=== PATIENT | female | born 1955 | race Caucasian/White ===

== ENCOUNTER → 2017-05-21 | Outpatient (CLI) | payer OTHER ==
--- NOTE | 2017-05-21 12:35 | BD ---
EXAMINATION TYPE: MG DEXA axial skeleton. DATE OF EXAM: 05/21/2017 COMPARISON: 06/28/2008. CLINICAL HISTORY: Osteoporosis Height: 68 Weight: 195.8 FRAX RISK QUESTIONS: Alcohol (3 or more units per day): no Family History (Parent hip fracture): no Glucocorticoids (More than 3mos): no (Ex: prednisone, prednisolone, methylprednisolone, dexamethasone, and hydrocortisone). History of Fracture in Adulthood: no Secondary Osteoporosis: 1. Type 1 Diabetes: no 2. Hyperthyroidism: no 3. Menopause before 45: no 4. Malnutrition: no 5. Chronic liver disease: no Rheumatoid Arthritis: no Current Tobacco Use: no RISK FACTORS HISTORY OF: Hip Fracture (Right/Left): no Spine Fracture: no History of Wrist Fracture: no Surgery to Spine/Hip(right/left)/Wrist (right/left): no Family History of Osteoporosis: yes Active: yes Diet low in dairy products/other sources of calcium: no Postmenopausal woman: age 46 Lost more than 2 inches in height since high school: no Frequent falls: no Poor Health: no Hyperparathyroidism: no Adrenal Insufficiency: no MEDICATIONS: blood pressure, lexapro Additional History: EXAM MEASUREMENTS: Bone mineral densitometry was performed using the [employer] System. Bone mineral density as measured about the Lumbar spine is: ----- L1-L4(G/cm2): 1.224 T Score Values are as follows: ----- L2: 0.5 ----- L3: 0.8 ----- L4: 0.7 ----- L1-L4: 0.4 Bone mineral density has: desreased -5.2 % since study of: 06.28.2008 Bone mineral density about the R hip (g/cm2): 0.880 Bone mineral density about the L hip (g/cm2): 0.870 T Score values are as follows: -----R Neck: -1.1 -----L Neck: -1.2 -----R Total: -0.5 -----L Total: -0.3 Bone mineral density has: decreased -3.5 % since study of: 06.28.2008 IMPRESSION: Osteopenia (T Score between -2.5 and -1 as noted by T score values). There is slightly increased risk of fracture and the patient may be considered for treatment. Re-Screen 2-5 years. NOTE: T-SCORE=SD OF THE YOUNG ADULT MEAN.
--- NOTE | 2017-05-22 14:48 | MM ---
Reason for exam: screening (asymptomatic). Last mammogram was performed 1 year and 1 month ago. History: Patient is postmenopausal. Family history of premenopausal breast cancer in aunt at age 35. Benign excisional biopsy of the left breast, 1969. Physical Findings: A clinical breast exam by your physician is recommended on an annual basis and results should be correlated with mammographic findings. MG 3D Screening Mammo W/Cad Bilateral CC and MLO view(s) were taken. Prior study comparison: May 01, 2016, bilateral MG 3d screening mammo w/cad. There are scattered fibroglandular densities. No significant changes when compared with prior studies. ASSESSMENT: Benign, BI-RAD 2 RECOMMENDATION: Routine screening mammogram of both breasts in 1 year.
== END | disposition home or self-care (01) ==
LOC: RADMAMWWP 07:41
PROVIDERS: ATTEND Family Medicine
DX: Z12.31 Encounter for screening mammogram for malignant neoplasm of breast (principal); Z13.820 Encounter for screening for osteoporosis; M85.80 Other specified disorders of bone density and structure, unspecified site
CPT/HCPCS: 77080; 77063; G0202

== ENCOUNTER → 2018-06-18 | Outpatient (CLI) | payer OTHER ==
--- NOTE | 2018-06-23 10:46 | MM ---
Reason for exam: screening (asymptomatic). Last mammogram was performed 1 year and 1 month ago. History: Patient is postmenopausal. Family history of premenopausal breast cancer in aunt at age 35. Benign excisional biopsy of the left breast, 1970. Physical Findings: A clinical breast exam by your physician is recommended on an annual basis and results should be correlated with mammographic findings. MG Screening Mammo w CAD Bilateral CC and MLO view(s) were taken. Prior study comparison: May 21, 2017, bilateral MG 3d screening mammo w/cad. May 01, 2016, bilateral MG 3d screening mammo w/cad. There are scattered fibroglandular densities. New focal asymmetry 10 o'clock left breast middle depth. This is suspicious. ASSESSMENT: Incomplete: need additional imaging evaluation, BI-RAD 0 RECOMMENDATION: Special view mammogram of the left breast. If lesion persists on supplemental views, image directed ultrasound is recommended. [facility] will attempt to contact patient to return for supplemental views and ultrasound if indicated.
== END | disposition home or self-care (01) ==
LOC: RADMAMWWP 08:36
PROVIDERS: ATTEND Family Medicine
DX: Z12.31 Encounter for screening mammogram for malignant neoplasm of breast (principal)
CPT/HCPCS: 77067

== ENCOUNTER → 2018-06-24 | Outpatient (CLI) | payer OTHER ==
--- NOTE | 2018-06-24 13:09 | MM ---
Reason for exam: additional evaluation requested from abnormal screening. Last mammogram was performed less than 1 month ago. History: Patient is postmenopausal. Family history of premenopausal breast cancer in aunt at age 35. Benign excisional biopsy of the left breast, 1970. Took estrogen for 3 months beginning at age 46. Took progesterone for 3 months beginning at age 46. Physical Findings: Nurse did not find any significant physical abnormalities on exam. MG 3D Work Up W/Cad LT Spot compression CC, spot compression MLO, and LM view(s) were taken of the left breast. Prior study comparison: June 18, 2018, bilateral MG screening mammo w CAD. May 21, 2017, bilateral MG 3d screening mammo w/cad. There are scattered fibroglandular densities. 8mm mass persists 10 o'clock central left breast. These results were verbally communicated with the patient and result sheet given to the patient on 06/24/18. ASSESSMENT: Incomplete: need additional imaging evaluation, BI-RAD 0 RECOMMENDATION: Ultrasound of the left breast.
--- NOTE | 2018-06-24 13:11 | USB ---
Reason for exam: additional evaluation requested from abnormal screening. History: Patient is postmenopausal. Family history of premenopausal breast cancer in aunt at age 35. Benign excisional biopsy of the left breast, 1970. Took estrogen for 3 months beginning at age 46. Took progesterone for 3 months beginning at age 46. US Breast Workup LT Left complete breast ultrasound includes all four quadrants, the retroareolar region and axilla. Finding demonstrates a 0.8 x 0.5 x 0.6cm oval, taller than wide, irregular, solid, hypoechoic lesion at 10 o'clock. No axillary lymphadenopathy. These results were verbally communicated with the patient and result sheet given to the patient on 06/24/18. ASSESSMENT: Suspicious, BI-RAD 4 RECOMMENDATION: Surgical consultation and ultrasound core biopsy of the left breast. Called Dr. Varela with mammographic findings and has scheduled an appointment for the patient for 07/09/18 at 3:[address] Haines. Biopsy scheduled for 07/13/18 at 12:20. PRELIMINARY REPORT CALLED AND FAXED TO DR. HAINES ON 06/24/18.
== END | disposition home or self-care (01) ==
LOC: RADMAMWWP 10:00
PROVIDERS: ATTEND Family Medicine
DX: R92.8 Other abnormal and inconclusive findings on diagnostic imaging of breast (principal)
CPT/HCPCS: 77061; 77065

== ENCOUNTER → 2018-07-09 | Outpatient (CLI) | payer OTHER ==
[2018-07-09 08:16] VITALS: BP 147/68; PULSE 69; BMI 29.6
--- NOTE | 2018-07-09 08:49 | P.GSHP ---
History of Present Illness H&P Date: 07/09/18 The patient is a 62-year-old white female who is status post routine bilateral screening mammogram. The mammogram was performed on 06-18-18, this showed a questionable lesion in the left breast. Subsequently a left breast by compression view was obtained after which an ultrasound of the left breast was obtained. On the compression view an 8 mm mass persisted at 10:00 in the central left breast. On the ultrasound a 8 mm tolerated and wide irregular solid hypoechoic lesion was seen at 10:00. An ultrasound core biopsy was recommended. The patient does not feel anything of concern in her breast. She has no nipple discharge or skin changes of concern. She has no history of trauma or infection in the breast. Family history: 1. maternal aunt: breast cancer dx. in 30's 2. maternal cousin: breast cousin in 60's 3. maternal second cousin: breast cancer bilateral in 40's 4. brother: prostate Hormonal History: menarche: 14 : 2, first at 17, breast fed:yes menopause: hysterectomy took ovaries, at the age of 46 BCP: less than 1 year hormones: less than 1 year Past Surgical History: 1. hysterectomy and bilateral oophrectomy 2. gallbladder 3. bilateral carpel tunnel 4. left great toe 5. appendix Past Medical History: 1. HTN Social history: Smoke: Negative stopped 20 years ago, less than a pack a day for 20 years Alcohol: Wine 1-2 glasses per day Drugs: Negative Allergies: none - Constitutional Constitutional: Denies chills, Denies fever - EENT Eyes: denies blurred vision, denies pain Ears: bilateral: tinnitus, deny: decreased hearing Ears, nose, mouth and throat: Denies headache, Denies sore throat - Breasts Breasts: bilateral: as per HPI - Cardiovascular Comment: Patient with intermittent heart flutter follows with cardiology Cardiovascular: Reports high blood pressure - Respiratory Respiratory: Denies cough, Denies 7 - Gastrointestinal Gastrointestinal: Denies abdominal pain, Denies diarrhea, Denies nausea, Denies vomiting - Genitourinary (Female) Genitourinary: Denies dysuria, Denies hematuria - Menstruation Menstruation: Reports post hysterectomy - Musculoskeletal Comment: osteoarthritis, toe and hips Musculoskeletal: Reports myalgias - Integumentary Integumentary: Denies pruritus, Denies rash - Neurological Neurological: Denies numbness, Denies weakness - Psychiatric Psychiatric: Reports anxiety, Denies depression - Endocrine Endocrine: Denies fatigue, Denies weight change - Hematologic/Lymphatic Comment: aspirin baby - Allergic/Immunologic Comment: none Past Medical History Past Medical History: GERD/Reflux, Hypertension History of Any Multi-Drug Resistant Organisms: None Reported Past Surgical History: Breast Surgery, Cholecystectomy, Hysterectomy, Orthopedic Surgery Additional Past Surgical History / Comment(s): first digit left foot fusion, bilateral carpal tunnel sx, left breast benign excisional-1970 Past Anesthesia/Blood Transfusion Reactions: No Reported Reaction Past Psychological History: Depression Smoking Status: Former smoker Past Alcohol Use History: None Reported Past Drug Use History: None Reported Medications and Allergies Home Medications Medication Instructions Recorded Confirmed Type Aspirin [Adult Low Dose Aspirin EC] 81 mg PO DAILY 07/03/18 07/09/18 History Cholecalciferol (Vitamin D3) 4,000 unit PO DAILY 07/03/18 07/09/18 History [Vitamin D3] Cyanocobalamin (Vitamin B-12) 5,000 mcg PO DAILY 07/03/18 07/09/18 History [Vitamin B12] Escitalopram Oxalate [Lexapro] 10 mg PO DAILY 07/03/18 07/09/18 History Irbesartan 300 mg PO DAILY 07/03/18 07/09/18 History Omeprazole [PriLOSEC] 20 mg PO DAILY 07/03/18 07/09/18 History Allergies Allergy/AdvReac Type Severity Reaction Status Date / Time No Known Allergies Allergy Verified 07/03/18 13:06 Surgical - Exam Vital Signs Pulse BP Pulse Ox 69 147/68 100 07/09/18 08:10 07/09/18 08:10 07/09/18 08:10 - General well developed, well nourished, no distress - Eyes normal ocular movement - ENT no hearing loss, no congestion - Neck no masses, trachea midline - Respiratory normal respiratory effort, clear to auscultation - Cardiovascular Rhythm: regular Heart Sounds: normal: S1, S2 - Abdomen Abdomen: soft, non tender, no guarding, no rigid, no rebound - Neurologic no disoriented, no combative - Musculoskeletal normal gait, normal posture - Psychiatric oriented to time, oriented to person, oriented to place, speech is normal, memory intact Breast examination: Right breast: Multi-positional exam no dominant masses or nodules of concern Right axilla: No adenopathy of concern Left breast: Multi-positional exam no dominant masses or nodules of concern special attention to the 10:00 area did not reveal any lesions of concern Left axilla: No adenopathy of concern Results Mammogram and ultrasound reports reviewed Assessment and Plan Assessment: Impression: 1. Ultrasound abnormality/mammographic abnormality left breast 2. Fibrocystic breast changes 3. Hypertension/irregular heartbeats at times, follows with light adjuster 4. Osteoarthritis Plan: 1. Ultrasound-guided core biopsy left breast 2. Medical management of medical problems 3. Follow-up after ultrasound core biopsy of left breast CC: Dr. Varela
== END | disposition home or self-care (01) ==
LOC: WWCWWP 07:46
PROVIDERS: ATTEND Surgery
DX: Z53.9 Procedure and treatment not carried out, unspecified reason (principal)

== ENCOUNTER → 2018-07-13 | Day surgery (SDC) | payer OTHER ==
[2018-07-13 11:23] VITALS: RESP 12
[2018-07-13 12:43] VITALS: BP 135/80; PULSE 75; TEMP 98.3
--- NOTE | 2018-07-13 12:56 | USB ---
EXAMINATION TYPE: US biopsy breast VAD LT, MG diagnostic mammo LT wo CAD DATE OF EXAM: 07/13/2018 CLINICAL HISTORY: R92.8 Previous Abnormal Mammogram. Abnormal ultrasound TECHNIQUE: Ultrasound guided core biopsy of left breast with clip placement and follow-up diagnostic two-view mammogram. COMPARISON: Mammogram and ultrasound June 24, 2018 FINDINGS: The procedure of ultrasound guided core biopsy was explained to the patient. Benefits, alternatives, and risks were discussed. An informed consent was then obtained. The patient was placed in supine positioning for imaging and for the procedure. Preprocedure imaging redemonstrates suspicious irregular hypoechoic shadowing 7 mm lesion 10:00 position zone a and the left breast. The overlying skin was prepped and draped in usual sterile fashion. Lidocaine buffered with bicarbonate was used as anesthetic into the skin and subcutaneous tissue. Lidocaine with epinephrine is used as anesthetic into the deeper tissue up to area of concern in the left breast. Under ultrasound guidance, a 12-gauge vacuum assisted biopsy gun device was used to obtain 3 core samples. Following this, a biopsy clip was left in lesion. The patient tolerated the procedure well without any immediate complication. The patient was kept in the radiology department for short stay after the procedure and then discharged home in stable condition. Postprocedure mammogram shows successful placement of clip relative to the area of concern on mammogram, previously visualized density is less well-seen after sampling. IMPRESSION: Successful, uncomplicated ultrasound guided core biopsy of area of concern in the left breast, full pathology results to follow. Intermediate to high index of suspicion noted at time of procedure. Pathology Results: Malignant BREAST, LEFT, ULTRASOUND GUIDED CORE BIOPSY: Invasive well differentiated ductal carcinoma (Grade 1). See Surgical Pathology Cancer Case Summary. Recommendation Surgical consult of the left breast. GUILLE
== END | disposition home or self-care (01) ==
LOC: RADUSWWP 11:02
PROVIDERS: ATTEND Surgery
DX: C50.912 Malignant neoplasm of unspecified site of left female breast (principal); Z17.0 Estrogen receptor positive status [ER+]
CPT/HCPCS: 88305; 77065; 19083; A4648; J2001; 88341; 88342

== ENCOUNTER → 2018-07-23 | Outpatient (CLI) | payer OTHER ==
[2018-07-23 13:16] VITALS: BP 136/63; PULSE 75; BMI 28.8
--- NOTE | 2018-07-23 14:10 | P.PN ---
Subjective Progress Note Date: 07/23/18 The patient is a 62-year-old white female who is status post ultrasound-guided core biopsy of an 8 mm lesion in the 10 o'clock position of the left breast. Pathology revealed a grade 1 invasive ductal carcinoma which was ER/UT positive and HER-2 negative. The patient has no complaints related to the procedure. The procedure was done by radiology as an ultrasound core biopsy. Objective - Vital Signs Vital signs: Vital Signs Temp Pulse 75 07/23/18 13:12 Resp BP 136/63 07/23/18 13:12 Pulse Ox 100 07/23/18 13:12 Intake & Output 07/22/18 07/23/18 07/23/18 18:59 06:59 18:59 Weight 86.183 kg BMI 28.9 - Constitutional General appearance: Present: obese - EENT Eyes: Present: EOMI - Neck Neck: Present: normal ROM - Respiratory Respiratory: bilateral: CTA - Cardiovascular Rhythm: regular Heart sounds: normal: S1, S2 - Musculoskeletal Musculoskeletal: Present: gait normal - Psychiatric Psychiatric: Present: A&O x's 3, appropriate affect, intact judgment & insight - Additional findings Additional findings: Examination of the left breast does not reveal any evidence of infection, mild ecchymosis at the site of biopsy Assessment and Plan Assessment: Impression: 1. Left breast invasive ductal carcinoma At had a long conversation with the patient and her . We have discussed options including lumpectomy and radiation therapy with sentinel node biopsy possible axillary node dissection, mastectomy plus or minus reconstruction. The risks and benefits of the procedures have been discussed with the patient. I believe she is a good candidate for a lumpectomy. This is how the patient wishes to proceed. We've also discussed the fact that she has a maternal aunt who had breast cancer in her 30's however this does not make the patient to candidate for BRCA1 testing as per conversation with Dr. Hollins. Plan: 1. Left breast needle localization with sentinel node injection, lumpectomy and sentinel node biopsy, possible axillary node dissection cc: DR. Tran
== END ==
LOC: WWCWWP 12:22
PROVIDERS: ATTEND Surgery
DX: Z53.9 Procedure and treatment not carried out, unspecified reason (principal)

== ENCOUNTER 2018-08-11 07:15 | Day surgery (SDC) | payer OTHER ==
[2018-08-04 14:13] VITALS: BMI 29.6
[~2018-08-11 07:15] MED LIST: HEPARIN SODIUM,PORCINE 5,000 UNIT/ML 1 ML VIAL SQ ONE; Pre Op ABX Message 1 EACH MISC MISCELLANE ONE
[2018-08-11] MEDS ORDERED: LACTATED RINGERS 1,000 ML IV ONE ×2 (07:47→11:55)
[2018-08-11] MEDS ORDERED: LIDOCAINE 1% 20 ML VIAL (10MG/ML) FOR IV START INTRADERMA ONE (07:48)
[2018-08-11] MEDS ORDERED: LIDOCAINE (PF) 10 MG/ML 5ML AMP SQ ONE (08:57)
[2018-08-11] MEDS ORDERED: SODIUM BICARB 4% 5 ML VIAL (0.48 MEQ/ML) MISCELLANE ONE (08:57)
[2018-08-11 09:23] VITALS: TEMP 97.9
--- NOTE | 2018-08-11 09:56 | NM ---
EXAMINATION TYPE: NM sentinel node injection DATE OF EXAM: 08/11/2018 COMPARISON: 07/13/2018 and 06/24/2018 HISTORY: Left breast invasive well-differentiated ductal carcinoma (7 mm lesion at the top clock posi tion). EXAMINATION TYPE: NM sentinel node injection TECHNIQUE AND FINDINGS: The procedure of sentinel lymph node injection was explained to the patient. The benefits, alternatives, and risks were discussed. An informed consent was then obtained. Overlying skin is cleaned with sterile alcohol. Following this, 537 uCi [id number] Tilmanocept was inject ed in the upper outer aspect of the left nipple intradermally. The patient tolerated the procedure well without any immediate complication. The patient was kept in the radiology department for short stay after the procedure and then taken to surgery for surgical p rocedure what is presumed intraoperative gamma probe will be used for sentinel lymph node detection. IMPRESSION: breast radiotracer injection for sentinel node localization as above.
[2018-08-11] MEDS ORDERED: HEPARIN SODIUM,PORCINE 5,000 UNIT/ML 1 ML VIAL SQ ONE (10:05)
--- NOTE | 2018-08-11 10:07 | P.NAPBC ---
NAPBC Queries - NAPBC Queries Was patient's case review presented at [facility] tumor board? If no, comment.: Yes Was patient's pathology reviewed at [facility]? If no, comment.: Yes Was breast conservation surgery offered? If no, comment.: Yes Was sentinel node biopsy offered? If no, comment.: Yes Was diagnosis confirmed by percutaneous core biopsy? If no, comment.: Yes If mastectomy patient, was a preop referral to a reconstructive surgeon offered? : Yes
[2018-08-11] MEDS ORDERED: fentaNYL (PF) 50 MCG/ML 2 ML AMP ONE (10:42)
[2018-08-11] MEDS ORDERED: NEOSTIGMINE 1 MG/ML 10 ML VIAL ONE (10:42)
[2018-08-11] MEDS ORDERED: LIDOCAINE 1% INJ 10MG/ML (20 ML MDV) ONE (10:42)
[2018-08-11] MEDS ORDERED: ePHEDrine SULFATE/0.9% NACL/PF 50 MG/5 ML SYRINGE IV ONE (10:42)
[2018-08-11] MEDS ORDERED: MIDAZOLAM 2 MG/2 ML VIAL ONE (10:42)
[2018-08-11] MEDS ORDERED: GLYCOPYRROLATE 0.2 MG/ML 2 ML VIAL ONE (10:42)
[2018-08-11] MEDS ORDERED: ROCURONIUM BROMIDE 10 MG/ML 10 ML VIAL IV ONE (10:42)
[2018-08-11] MEDS ORDERED: PROPOFOL 10 MG/ML 20 ML VIAL IV ONE (10:42)
[2018-08-11] MEDS ORDERED: PHENYLEPHRINE-0.9% NACL SYG 1 MG/10 ML SYRINGE ONE (10:42)
[2018-08-11] MEDS ORDERED: SODIUM CHLORIDE 0.9% 50 ML with ceFAZolin 2,000 MG IV ONE ×2 (11:12)
[2018-08-11] MEDS ORDERED: LIDOCAINE 1% INJ 10MG/ML (20 ML MDV) SQ ONE ×2 (11:12→13:01)
--- NOTE | 2018-08-11 13:01 | MM ---
EXAMINATION TYPE: MG pre op needle loc LT, MG surgical specimen LT DATE OF EXAM: 08/11/2018 COMPARISON: 07/13/2018 CLINICAL HISTORY: Left breast invasive well-differentiated ductal carcinoma (7 mm mass). TECHNIQUE: Needle localization with wire placement and surgical excision of area of concern in the left breast. FINDINGS: The procedure of needle localization with wire placement and than surgical excision was explained to the patient. Benefits, alternatives, and risks were discussed. An informed consent was then obtained. Preprocedural timeout was performed. The shortest pathway for procedure was chosen. Shortest pathway was medial to lateral approach. The overlying skin was prepped and draped in usual sterile fashion. Lidocaine buffered with bicarbonate was used as anesthetic into the skin and subcutaneous tissue up to the level of area of concern. A 7 cm needle was used. It was placed via a medial to lateral approach under mammographic guidance. Subsequent 90 degrees mammogram show the needle to be in satisfactory position relative to the targeted area. At this point, wire was placed and the needle was withdrawn. The wire was fixed to patient's skin. Images were marked for surgeon. The patient tolerated the procedure well without any immediate complication. The patient was kept in the radiology department for short stay after the procedure and then taken to surgery for surgical excision. Targeted ribbon- shaped biopsy marker and wire are identified in specimen mammogram. The patient was kept in hospital for short stay after the procedure and then discharged home in stable condition. IMPRESSION: Successful, uncomplicated needle localization with wire placement and surgical excision of targeted ribbon-shaped biopsy marker indicating the 7 mm biopsy-proven left breast invasive well-differentiated ductal carcinoma in the left breast, full pathology results to follow. Pathology Results: Malignant A. LEFT BREAST, LUMPECTOMY: Invasive well differentiated ductal carcinoma ( Grade 1), margins negative for malignancy. See Surgical Pathology Cancer Case Summary. B. LEFT AXILLARY SENTINEL LYMPH NODE, BIOPSY: Lymph node negative for metastasis. CK7 and WES immunoperoxidase stains are confirmatory (controls appropriate). C. LEFT AXILLARY TISSUE: Three lymph nodes with fat replacement, negative for metastasis. D. LEFT BREAST ANTERIOR MARGIN, EXCISION: Benign skin. E. LEFT BREAST, EXTERNAL SURFACE OF NEW INFERIOR MARGIN, EXCISION: Benign breast tissue. Recommendation Surgical consult of the left breast. GUILLE
--- NOTE | 2018-08-11 13:09 | P.OP ---
Date of Procedure: 08/11/18 Preoperative Diagnosis: Left breast cancer Postoperative Diagnosis: Same Procedure(s) Performed: [place] node biopsy left axilla, left breast lumpectomy, oncoplastic tissue transfer, Biozorb placement Implants: biozorb 3x4 Anesthesia: GETA Surgeon: Judy Haines Estimated Blood Loss (ml): 15 IV fluids (ml): 1,000 Pathology: other (sentinal node, breast tissue) Condition: stable Disposition: PACU Indications for Procedure: Left breast invasive ductal carcinoma Operative Findings: Dense breast tissue Description of Procedure: The patient is a 62-year-old white female who was diagnosed with a left breast invasive ductal carcinoma via core biopsy. She was given options of lumpectomy versus mastectomy with or without reconstruction and decided for a lumpectomy. Risks and benefits of the procedure were discussed with the patient. The patient was taken to the operating room and following induction of general anesthesia the left breast and axilla were prepped and draped in a sterile fashion. Using the neoprobe the area for incision in the axilla was decided. Small incision was made and carried down to the area of the pectoralis major muscle. This was carried down into the area of the axillary tissue. The radioactive lymph node was identified. The 10 second count of the radioactive lymph node was approximately 18,000. Following this background count of the axilla was evaluated and this was noted to be 31 at 10 seconds. After this the axilla was well irrigated. We were sure that hemostasis was attained the deep tissues were closed using 3-0 Vicryl suture. The skin was closed using 4-0 Monocryl. The area of the breast was then approached. A circumareolar incision was made with a second curvilinear incision just superior to this incision. Careful dissection was able to be performed such that the area of the needle local localization needle was identified. We dissected around the needle suture circumferentially. Anteriorly the dissection included the skin. Posterior dissection was down onto the pectoralis major muscle. Wide excision was performed. The specimen was radiographed and the area of concern was noted to have been removed. There was concern that the inferior margin may be close and additional tissue was taken at the inferior margin. The specimen was painted for orientation. The lumpectomy cavity was then evaluated. Approximately 8 x 3 mL of tissue transfer using oncoplastic technique was performed to fill the defect. A Biozorb sizer was utilized to determine the size of the biozorb are to be used. A 3 x 4 Biozorb was chosen. This was placed in the cavity and secured using 3-0 Vicryl suture. The superficial tissues were closed with 3-0 Vicryl suture. The skin was closed with 4-0 Monocryl. The patient tolerated the procedure in stable condition. All instrument and sponge counts were correct at the end of the case.
--- NOTE | 2018-08-11 13:10 | P.DS ---
Providers Attending physician: Judy Haines Primary care physician: Lenny Varela Plan - Discharge Summary New Discharge Prescriptions: No Action Omeprazole [PriLOSEC] 20 mg PO DAILY Irbesartan 300 mg PO DAILY Escitalopram Oxalate [Lexapro] 10 mg PO DAILY Cholecalciferol (Vitamin D3) [Vitamin D3] 4,000 unit PO DAILY Aspirin [Adult Low Dose Aspirin EC] 81 mg PO DAILY Cyanocobalamin [Vitamin B-12] 500 mcg PO DAILY ALPRAZolam [Xanax] 0.25 mg PO DAILY PRN PRN Reason: Anxiety Discharge Medication List Aspirin [Adult Low Dose Aspirin EC] 81 mg PO DAILY 07/03/18 [History] Cholecalciferol (Vitamin D3) [Vitamin D3] 4,000 unit PO DAILY 07/03/18 [History] Escitalopram Oxalate [Lexapro] 10 mg PO DAILY 07/03/18 [History] Irbesartan 300 mg PO DAILY 07/03/18 [History] Omeprazole [PriLOSEC] 20 mg PO DAILY 07/03/18 [History] ALPRAZolam [Xanax] 0.25 mg PO DAILY PRN 08/04/18 [History] Cyanocobalamin [Vitamin B-12] 500 mcg PO DAILY 08/04/18 [History] Follow up Appointment(s)/Referral(s): Judy Haines MD [STAFF PHYSICIAN] - 1 Week Activity/Diet/Wound Care/Special Instructions: Do not drive today Do not drive if taking narcotic pain medication Patient may shower after 48 hours Patient to wear surgical bra at all times unless in shower Discharge Disposition: HOME SELF-CARE
[2018-08-11 13:59] VITALS: RESP 16
[2018-08-11] MEDS ORDERED: HYDROcodone/APAP 5-325MG 1 EACH TAB PO ONE (14:55)
[2018-08-11 14:57] VITALS: BP 123/60; PULSE 79
== END 2018-08-11 15:47 | disposition home or self-care (01) ==
LOC: OR 07:15
PROVIDERS: ATTEND Surgery
DX: C50.212 Malignant neoplasm of upper-inner quadrant of left female breast (principal); Z17.0 Estrogen receptor positive status [ER+]; I10 Essential (primary) hypertension; K21.9 Gastro-esophageal reflux disease without esophagitis; Z79.82 Long term (current) use of aspirin; Z79.899 Other long term (current) drug therapy
CPT/HCPCS: 19301; 38525; 88342; 88307; 88341; 76098; 19281; 38792; A4648; A9520; J2250; J1644; J2710; J2001 ×2; J3010; J0690; J2370; J2704

== ENCOUNTER → 2018-08-20 | Outpatient (CLI) | payer OTHER ==
[2018-08-20 13:11] VITALS: BP 120/74; PULSE 77; RESP 18; TEMP 98.1; BMI 30.2
--- NOTE | 2018-08-20 13:15 | P.PN ---
Progress Note - Text Progress Note Date: 08/20/18 patient status post lumpectomy and sentinal node biopsy Patient's pathology reveals a grade 1 tumor sentinel lymph node and 3 additional nodes were negative for cancer the patient is margins were negative for cancer. The lesion was 8 mm in size The patient has no complaints at this time Physical examination Lungs clear Heart regular rate and rhythm Incision clean and dry Impression: 1. T1 N0 M0 right breast cancer status post lumpectomy and sentinel node biopsy Plan: 1. Primary with medical oncology 2. Premarin with radiation oncology 3. Follow-up here in 3 months time CC: Dr. Varela
== END | disposition home or self-care (01) ==
LOC: WWCWWP 11:59
PROVIDERS: ATTEND Surgery
DX: Z53.9 Procedure and treatment not carried out, unspecified reason (principal)

== ENCOUNTER → 2019-04-08 | Outpatient (CLI) | payer OTHER ==
[2019-04-08 10:50] VITALS: BP 126/81; PULSE 84; RESP 16; TEMP 98.7; BMI 29.9
--- NOTE | 2019-04-08 11:10 | P.PN ---
Subjective Progress Note Date: 04/08/19 Principal diagnosis: history of right breast cancer Dafne is a 63-year-old white female status post right breast lumpectomy and sentinel node biopsy in July 2018. Postprocedure she did receive radiation therapy. She has not had any chemotherapy. She is presently on anastrozole. The patient has been having joint pain while on the anastrozole and she is working with Dr. Reyes to determine if she will stay on the anastrozole. She is not complaining of any hot flashes or night sweats. She has no complaints related to the breast. She has no masses or nodules in her breasts for which she is concerned. Next mammogram is scheduled for June 18. The lesion itself was diagnosed by ultrasound-guided biopsy on [id number]. This revealed a grade 1 invasive ductal carcinoma, ER/IL positive, and HER-2 negative. She then underwent lumpectomy with sentinel node sampling on 1020 [id number]. Final pathology revealed invasive ductal carcinoma, grade 1, 8 mm with negative margins. 4 lymph nodes were removed all negative for tumor. family history: 1. Maternal aunt: Breast cancer 2. brother: prostate Surgical history: 1. Hysterectomy ovaries removed 2. Right breast lumpectomy and sentinel node biopsy 3. Cholecystectomy 4. Appendectomy 5. Bilateral carpal tunnel 6. Left refused 7. Bilateral varicose vein stripping Medical history: 1. Joint pain 2. Hypertension 3. Depression 4. Reflux ROS: HEENT: Negative Lungs: Negative Heart: Hypertension GI: Reflux : Status post hysterectomy ovaries removed Musculoskeletal: Joint pain Psychiatric: Depression Skin: Negative ALLERGIES: See H&P Social History: smoke: none alcohol:2 or 3 glasses of white wine/night drugs: none Objective - Vital Signs Vital signs: Vital Signs Temp 98.7 F 04/08/19 10:47 Pulse 84 04/08/19 10:47 Resp 16 04/08/19 10:47 BP 126/81 04/08/19 10:47 Pulse Ox 98 04/08/19 10:47 Intake & Output 04/07/19 04/08/19 04/08/19 18:59 06:59 18:59 Weight 89.358 kg - Exam BMI 30 - Constitutional General appearance: Present: average body habitus - EENT Eyes: Present: EOMI ENT: Present: hearing grossly normal - Neck Neck: Present: normal ROM - Respiratory Respiratory: bilateral: CTA - Cardiovascular Rhythm: regular Heart sounds: normal: S1, S2 - Gastrointestinal General gastrointestinal: Present: soft - Integumentary Integumentary: Present: normal turgor - Musculoskeletal Musculoskeletal: Present: gait normal - Psychiatric Psychiatric: Present: A&O x's 3, appropriate affect, intact judgment & insight - Additional findings Additional findings: breast exam: right breast: Multiple tissue exam no dominant masses or nodules of concern, fibrocystic changes Right axilla: No adenopathy of concern Left breast: Well-healed scar from prior surgery, slightly smaller than the left breast related to lumpectomy and radiation therapy, multiple positional exam no dominant masses or nodules of concern, fibrocystic changes, Left axilla: No adenopathy of concern Assessment and Plan Assessment: Impression: 1. Status post lumpectomy and sentinel node biopsy for stage I left breast cancer 2. Joint pain on anastrozole 3. Hypertension 4. Depression 5. Family history of cancer 6. reflux Plan: 1. Bilateral mammogram May 2019 with appointment to follow this 2. Continue follow with medical and radiation oncology 3. We'll follow with Dr. Reyes regarding continuing anastrozole 4. Medical management of medical conditions CC: Dr. Jean
== END ==
LOC: WWCWWP 09:53
PROVIDERS: ATTEND Surgery
DX: Z53.9 Procedure and treatment not carried out, unspecified reason (principal)

== ENCOUNTER → 2019-06-22 | Outpatient (CLI) | payer OTHER ==
--- NOTE | 2019-06-22 10:03 | MM ---
Reason for exam: additional evaluation requested from prior study. Last mammogram was performed 11 months ago. History: Patient is postmenopausal and has history of breast cancer at age 62. Family history of premenopausal breast cancer in maternal aunt at age 35 and breast cancer in maternal cousin at age 40. Malignant MG pre op needle loc LT of the left breast, August 11, 2018. Lumpectomy of the left breast, August 11, 2018. Malignant US biopsy breast VAD LT of the left breast, July 13, 2018. Benign excisional biopsy of the left breast, 1970. Took estrogen for 3 months beginning at age 46. Took progesterone for 3 months beginning at age 46. Taking antineoplastic for 1 year beginning at age 62. Physical Findings: Nurse did not find any significant physical abnormalities on exam. MG 3D Diag Mammo W/Cad SAVI Bilateral CC and MLO view(s) were taken. Prior study comparison: July 13, 2018, left breast MG diagnostic mammo LT wo CAD. June 24, 2018, left breast MG 3d work up w/cad LT. June 24, 2018, left breast US breast workup LT. May 01, 2016, bilateral MG 3d screening mammo w/cad. There are scattered fibroglandular densities. No suspicious abnormality. Post therapy change on the left. These results were verbally communicated with the patient and result sheet given to the patient on 06/22/19. ASSESSMENT: Benign, BI-RAD 2 RECOMMENDATION: Follow-up diagnostic mammogram of both breasts in 1 year.
== END ==
LOC: RADMAMWWP 09:10
PROVIDERS: ATTEND Radiology Radiation Oncology
DX: C50.212 Malignant neoplasm of upper-inner quadrant of left female breast (principal); Z92.3 Personal history of irradiation; Z17.0 Estrogen receptor positive status [ER+]; Z98.890 Other specified postprocedural states
CPT/HCPCS: 77062; 77066

== ENCOUNTER → 2019-06-22 | Outpatient (CLI) | payer OTHER ==
--- NOTE | 2019-06-22 10:43 | BD ---
EXAMINATION TYPE: Axial Bone Density DATE OF EXAM: 06/22/2019 COMPARISON: 05.21.2017 CLINICAL HISTORY: M 85.9 Height: 67 Weight: 196.1 FRAX RISK QUESTIONS: Alcohol (3 or more units per day): no Family History (Parent hip fracture): no Glucocorticoids (More than 3mos): no (Ex: prednisone, prednisolone, methylprednisolone, dexamethasone, and hydrocortisone). History of Fracture in Adulthood: no Secondary Osteoporosis: 1. Type 1 Diabetes: no 2. Hyperthyroidism: no 3. Menopause before 45: no 4. Malnutrition: no 5. Chronic liver disease: no Rheumatoid Arthritis: no Current Tobacco Use: no RISK FACTORS HISTORY OF: Family History of Osteoporosis: yes Active: yes Diet low in dairy products/other sources of calcium: no Postmenopausal woman: age 46 hysterectomy Lost more than 2 inches in height since high school: no MEDICATIONS: anastrozole, blood pressure, anti-depressants Additional History: radiation for breast cancer in 2018 EXAM MEASUREMENTS: Bone mineral densitometry was performed using the [employer] System. Bone mineral density as measured about the Lumbar spine is: ----- L1-L4(G/cm2): 1.241 T Score Values are as follows: ----- L2: 0.6 ----- L3: 0.8 ----- L4: 0.7 ----- L1-L4: 0.5 Bone mineral density has: increased 0.2 % since study of: 05.21.2017 Bone mineral density about the R hip (g/cm2): 0.841 Bone mineral density about the L hip (g/cm2): 0.856 T Score values are as follows: -----R Neck: -1.4 -----L Neck: -1.3 -----R Total: -0.7 -----L Total: -0.3 Bone mineral density has: decreased -2.3 % since study of: 05.21.2017 IMPRESSION: Osteopenia (T Score between -2.5 and -1). There is slightly increased risk of fracture and the patient may be considered for treatment. Re-Screen 2-5 years. NOTE: T-SCORE=SD OF THE YOUNG ADULT MEAN.
== END | disposition home or self-care (01) ==
LOC: RADBDWWP 09:12
PROVIDERS: ATTEND Internal Medicine Hematology & Oncology
DX: M85.80 Other specified disorders of bone density and structure, unspecified site (principal); M85.9 Disorder of bone density and structure, unspecified; Z79.890 Hormone replacement therapy
CPT/HCPCS: 77080

== ENCOUNTER → 2019-06-25 | Outpatient (CLI) | payer OTHER ==
[2019-06-25 09:49] VITALS: BP 111/80; PULSE 86; RESP 18; TEMP 98.1; BMI 31.1
--- NOTE | 2019-06-25 09:57 | P.PN ---
Subjective Progress Note Date: 06/25/19 Principal diagnosis: History of right breast cancer, [id number]+Her2-G1 Dafne is a 63-year-old white female status post lumpectomy radiation therapy and sentinel node biopsy in July 2018 for a stage IA left breast cancer. She is currently on anastrozole. She did not have chemotherapy. The patient has no complaints at this time. She is tolerating the anastrozole with no problems. The patient had a bilateral mammogram performed on 9318 this was felt to be benign BIRADS 2. She is recommended a follow-up mammogram of both breasts in 1 year. Family history: Maternal aunt: Breast cancer Bladder: Prostate cancer Hormonal history: Menarche:14 first born at 17, breast fed: Yes Menopause: Hysterectomy and ovaries removed at the age of 46 Control pills: Less than 1 year Hormones: Less than 1 year Surgical history: 1. Hysterectomy and bilateral oophorectomy 2. Cholecystectomy 3. Bilateral carpal tunnel 4. Left great toe 5. Appendix Past medical history: 1. Hypertension 2. arrhythmia Social history: Smoke: Negative. 21 years ago less than a pack a day for 20 years Alcohol: Wine 1-2 glasses per day Drugs: Negative ALLERGIES: Negative Review of systems: HEENT: Wears glasses, dentures Lungs: negative Heart: Arrhythmia, HTN GI: none : UTI in past Musculoskeletal: Arthritis Neurologic: Negative Hematologic: Negative Psychiatric: Anxiety/depression Objective - Vital Signs Vital signs: Intake & Output 06/24/19 06/25/19 06/25/19 18:59 06:59 18:59 Weight 90.265 kg - Exam BMI 31.2 - Constitutional General appearance: Present: average body habitus - EENT EENT Comment(s): top dentures and partial on bottom Eyes: Present: EOMI ENT: Present: hearing grossly normal - Neck Neck: Present: normal ROM - Respiratory Respiratory: bilateral: CTA - Cardiovascular Rhythm: regular Heart sounds: normal: S1, S2 - Gastrointestinal General gastrointestinal: Present: soft - Integumentary Integumentary: Present: normal turgor - Musculoskeletal Musculoskeletal: Present: gait normal - Psychiatric Psychiatric: Present: A&O x's 3, appropriate affect, intact judgment & insight - Additional findings Additional findings: breast exam: Right breast: Multi-positional exam fibrocystic changes no dominant masses or nodules of concern slightly larger than left breast secondary left breast surgery and radiation therapy Right axilla: No adenopathy of concern Left breast: Postoperative changes noted well-healed scar from prior surgery multiple positional exam no dominant masses or nodules of concern fibrocystic changes Left axilla: No adenopathy of concern Assessment and Plan Assessment: Impression: 1. Personal history of left breast cancer 2. Patient presently on anastrozole 3. Fibrocystic breast changes 4. Family history of breast cancer 5. Family history of cancer 6. Hypertension 7. Arrhythmia 8. No evidence of recurrent cancer Plan: 1. Repeat bilateral mammogram in 1 year 2. Follow up here in 6 months 3. Continue to follow with medical oncology 4. Medical management of medical conditions CC: DR. Varela
== END ==
LOC: WWCWWP 09:24
PROVIDERS: ATTEND Surgery
DX: Z53.9 Procedure and treatment not carried out, unspecified reason (principal)

== ENCOUNTER → 2020-04-07 | Outpatient (CLI) | payer MEDICARE ==
[2020-04-07 08:58] VITALS: BP 148/76; PULSE 84; RESP 18; TEMP 98.3
--- NOTE | 2020-04-07 09:26 | P.PN ---
Subjective Progress Note Date: 04/07/20 Principal diagnosis: [id number]+Her2-G1 Stage 1A left breast cancer Dafne is a 63-year-old white female status post lumpectomy radiation therapy and sentinel node biopsy in July 2018 for a stage IA left breast cancer. She had an attempted trial of the nest resolved which caused muscle aches, she therefore stopped the anastrozole. She was given another antihormone therapy which also did not agree with her and she is going to talk to medical oncology about the need for an antihormone therapy when she meets with them again. She did not have chemotherapy. She completed radiation therapy. The patient has no complaints at this time. The patient had a bilateral mammogram performed on 9318 this was felt to be benign BIRADS 2. She is recommended a follow-up mammogram of both breasts in 1 year. Family history: Maternal aunt: Breast cancer Bladder: Prostate cancer Hormonal history: Menarche:14 first born at 17, breast fed: Yes Menopause: Hysterectomy and ovaries removed at the age of 46 Control pills: Less than 1 year Hormones: Less than 1 year Surgical history: 1. Hysterectomy and bilateral oophorectomy 2. Cholecystectomy 3. Bilateral carpal tunnel 4. Left great toe 5. Appendix Past medical history: 1. Hypertension 2. arrhythmia Social history: Smoke: Negative. 21 years ago less than a pack a day for 20 years Alcohol: Wine 1-2 glasses per day Drugs: Negative ALLERGIES: Negative Review of systems: HEENT: Wears glasses, dentures Lungs: negative Heart: Arrhythmia, HTN GI: none : UTI in past Musculoskeletal: Arthritis Neurologic: Negative Hematologic: Negative Psychiatric: Anxiety/depression Objective - Vital Signs Vital signs: Vital Signs Temp 98.3 F 04/07/20 08:50 Pulse 84 04/07/20 08:50 Resp 18 04/07/20 08:50 BP 148/76 04/07/20 08:50 Pulse Ox 100 04/07/20 08:50 Intake & Output 04/06/20 04/07/20 04/07/20 18:59 06:59 18:59 Weight 87.09 kg - Exam BMI 29.2 - Constitutional General appearance: Present: average body habitus - EENT Eyes: Present: EOMI ENT: Present: hearing grossly normal - Respiratory Respiratory: bilateral: CTA - Cardiovascular Rhythm: regular Heart sounds: normal: S1, S2 - Gastrointestinal General gastrointestinal: Present: normal bowel sounds, soft - Integumentary Integumentary: Present: normal turgor - Musculoskeletal Musculoskeletal: Present: gait normal - Psychiatric Psychiatric: Present: A&O x's 3, appropriate affect, intact judgment & insight - Additional findings Additional findings: breast exam: BRA 40C inspection: ptosis grade 2 on the right, grade 1 on the left, right breast is larger than the left breast Palpation: Right breast: Multi-positional exam no dominant masses or nodules of concern fibrocystic changes Right axilla: no adenopathy of concern Left breast: Well-healed scar from prior lumpectomy, multiple positional exam no dominant masses or nodules of concern, fibrocystic changes Left axilla: No adenopathy of concern Assessment and Plan Assessment: Impression: 1. Surveillance status post left breast stage IA invasive ductal carcinoma no evidence of recurrence 2. Patient presently not on an antiestrogen medication 3. Hypertension well controlled 4. Asymmetry of the breast Plan: 1. Follow up here in June with repeat left breast mammogram and physician exam 2. Anti-hormonal therapy as per medical oncology 3. Patient is not interested in a symmetry procedure at this time CC: Dr. Varela encounter 15 minutes, > 50% of time in planning and counselling
== END | disposition home or self-care (01) ==
LOC: WWCWWP 08:27
PROVIDERS: ATTEND Surgery
DX: Z53.9 Procedure and treatment not carried out, unspecified reason (principal)

== ENCOUNTER → 2020-06-27 | Outpatient (CLI) | payer MEDICARE ==
--- NOTE | 2020-06-27 10:22 | MM ---
Reason for exam: additional evaluation requested from prior study. Last mammogram was performed 1 year ago. History: Patient is postmenopausal and has history of breast cancer at age 62. Family history of premenopausal breast cancer in maternal aunt at age 35 and breast cancer in maternal cousin at age 40. Malignant MG pre op needle loc LT of the left breast, August 11, 2018. Lumpectomy of the left breast, August 11, 2018. Malignant US biopsy breast VAD LT of the left breast, July 13, 2018. Benign excisional biopsy of the left breast, 1970. Took estrogen for 3 months beginning at age 46. Took progesterone for 3 months beginning at age 46. Taking antineoplastic for 1 year beginning at age 62. Physical Findings: Nurse did not find any significant physical abnormalities on exam. MG 3D Diag Mammo W/Cad SAVI Bilateral CC and MLO view(s) were taken. XCCL view(s) were taken of the left breast. Prior study comparison: June 22, 2019, bilateral MG 3d diag mammo w/cad SAVI. July 13, 2018, left breast MG diagnostic mammo LT wo CAD. There are scattered fibroglandular densities. Finding: Architectural distortion in the posterior, central position of the left breast consistent with known lumpectomy and treatment changes. There is no discrete abnormality. These results were verbally communicated with the patient and result sheet given to the patient on 06/27/20. ASSESSMENT: Benign, BI-RAD 2 RECOMMENDATION: Follow-up diagnostic mammogram of both breasts in 1 year.
== END | disposition home or self-care (01) ==
LOC: RADMAMWWP 09:20
PROVIDERS: ATTEND Surgery
DX: Z08 Encounter for follow-up examination after completed treatment for malignant neoplasm (principal); Z85.3 Personal history of malignant neoplasm of breast
CPT/HCPCS: 77066; G0279; 77062

== ENCOUNTER → 2020-07-07 | Outpatient (CLI) | payer MEDICARE ==
[2020-07-07 11:26] VITALS: BP 126/82; PULSE 76; RESP 16; TEMP 98.5
--- NOTE | 2020-07-07 11:36 | P.PN ---
Subjective Progress Note Date: 07/07/20 Principal diagnosis: stage 1A left breast cancer, [id number]+ Her2-G1 Dafne is a 64-year-old white female status post lumpectomy radiation therapy and sentinel node biopsy in July 2018 for a stage IA left breast cancer. She had an attempted trial of anastrozole which caused muscle aches, she therefore stopped the anastrazole. She was given another antihormone therapy, letrazloe which she recently started. She will follow with medical oncology in September,. She did not have chemotherapy. She completed radiation therapy. The patient has no complaints at this time. The patient had a bilateral mammogram performed on 06-27-20 this was felt to be benign BIRADS 2. She is recommended a follow-up mammogram of both breasts in 1 year. Chest not complaining of any lumps masses or nodules in her breast. No nipple discharge for which she is concerned. Family history: Maternal aunt: Breast cancer Bladder: Prostate cancer patient: breast cancer Hormonal history: Menarche:14 first born at 17, breast fed: Yes Menopause: Hysterectomy and ovaries removed at the age of 46 Control pills: Less than 1 year Hormones: Less than 1 year Surgical history: 1. Hysterectomy and bilateral oophorectomy 2. Cholecystectomy 3. Bilateral carpal tunnel 4. Left great toe 5. Appendix 6. Left breast lumpectomy sentinel node biopsy Past medical history: 1. Hypertension 2. arrhythmia 3. High cholesterol Social history: Smoke: Negative. 21 years ago less than a pack a day for 20 years Alcohol: Wine 1-2 glasses per day Drugs: Negative ALLERGIES: ? statins, and anastrazole Review of systems: HEENT: Wears glasses, dentures Lungs: negative Heart: Arrhythmia, HTN GI: none : UTI in past Musculoskeletal: Arthritis Neurologic: Negative Hematologic: Negative Psychiatric: Anxiety/depression Objective - Vital Signs Vital signs: Intake & Output 07/06/20 07/07/20 07/07/20 18:59 06:59 18:59 Weight 85.729 kg - Exam BMI 28.7 - Constitutional General appearance: Present: average body habitus - EENT Eyes: Present: EOMI ENT: Present: hearing grossly normal - Neck Neck: Present: normal ROM - Respiratory Respiratory: bilateral: CTA - Cardiovascular Rhythm: regular Heart sounds: normal: S1, S2 - Gastrointestinal General gastrointestinal: Present: normal bowel sounds, soft - Integumentary Integumentary: Present: normal turgor - Musculoskeletal Musculoskeletal: Present: gait normal - Psychiatric Psychiatric: Present: A&O x's 3, appropriate affect - Additional findings Additional findings: breast exam: BRA; 42C Inspection: Right breast larger than left breast, well-healed scar from prior left breast lumpectomy Palpation: Right breast: Multiple positional exam no dominant masses or nodules of concern fibrocystic changes Right axilla: No adenopathy of concern Left breast: Reveals scar from prior surgery, fibrocystic changes no dominant masses or nodules of concern Left axilla: No adenopathy of concern Assessment and Plan Assessment: Impression: 1. Status post left breast lumpectomy for stage I a left breast cancer, no evidence of recurrent cancer 2. Patient presently on the left resolve 3. High cholesterol 4. Hypertension 5. Arrhythmia Plan: 1. Repeat bilateral mammogram in 1 year 2. Follow appearance 6 months time 3. Continue to follow with medical oncology 4. Continue follow-up with radiation oncology Cc: Dr. Varela encounter 15 minutes, > 50% of time spent in planning and counselling
== END | disposition home or self-care (01) ==
LOC: WWCWWP 11:07
PROVIDERS: ATTEND Surgery
DX: Z53.9 Procedure and treatment not carried out, unspecified reason (principal)

== ENCOUNTER → 2021-03-22 | Outpatient (CLI) | payer MEDICARE ==
[2021-03-22 10:53] VITALS: BP 125/73; PULSE 72; RESP 16; TEMP 98.5
--- NOTE | 2021-03-22 11:04 | P.PN ---
Subjective Progress Note Date: 03/22/21 Principal diagnosis: stage IA left breast cancer; [id number]+ Her2-G1 stage 1A left breast cancer, [id number]+/ME+ Her2-G1 surveillance Dafne is a 65-year-old white female status post lumpectomy radiation therapy and sentinel node biopsy in July 2018 for a stage IA left breast cancer. She had an attempted trial of anastrozole which caused muscle aches, she therefore stopped the anastrazole. She was given another antihormone therapy, letrazloe she also stopped this secondary to muscle aches and depression. She may be tried on tamoxifen, she has had a total abdominal hysterectomy. She is going to see medical oncology tomorrow. She did not have chemotherapy. She completed radiation therapy. The patient has no complaints at this time. The patient had a bilateral mammogram performed on 06-27-20 this was felt to be benign BIRADS 2. She is recommended a follow-up mammogram of both breasts in 1 year. She is not complaining of any lumps masses or nodules in her breast. No nipple discharge for which she is concerned. Family history: Maternal aunt: Breast cancer Bladder: Prostate cancer patient: breast cancer Hormonal history: Menarche:14 first born at 17, breast fed: Yes Menopause: Hysterectomy and ovaries removed at the age of 46 Control pills: Less than 1 year Hormones: Less than 1 year Surgical history: 1. Hysterectomy and bilateral oophorectomy 2. Cholecystectomy 3. Bilateral carpal tunnel 4. Left great toe 5. Appendix 6. Left breast lumpectomy sentinel node biopsy Past medical history: 1. Hypertension 2. arrhythmia 3. High cholesterol Social history: Smoke: Negative. 21 years ago less than a pack a day for 20 years Alcohol: Wine 1-2 glasses per day Drugs: Negative ALLERGIES: ? statins, and anastrazole Review of systems: HEENT: Wears glasses, dentures Lungs: negative Heart: Arrhythmia, HTN GI: none : UTI in past Musculoskeletal: Arthritis Neurologic: Negative Hematologic: Negative Psychiatric: Anxiety/depression Objective - Constitutional General appearance: Present: average body habitus - EENT ENT: Present: hearing grossly normal - Neck Neck: Present: normal ROM - Respiratory Respiratory: bilateral: CTA - Cardiovascular Rhythm: regular Heart sounds: normal: S1, S2 - Integumentary Integumentary: Present: normal turgor - Musculoskeletal Musculoskeletal: Present: gait normal - Psychiatric Psychiatric: Present: A&O x's 3, appropriate affect, intact judgment & insight - Additional findings Additional findings: Breast exam: BRA: 40B inspection: Well-healed scar left breast, asymmetry of the breasts related to prior surgery left breast smaller than the right Palpation: Right breast: Multiple positional exam fibrocystic changes, no dominant masses or nodules of concern Right axilla: No adenopathy of concern Left breast: Multiple positional exam fibrocystic changes, no dominant masses or nodules of concern Left axilla: No adenopathy of concern Assessment and Plan Assessment: Impression: 1. Fibrocystic breast changes 2. Surveillance status post stage I a left breast cancer 3. Osteoarthritis 4. 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 Asymmetry of the breast 6. She was started on anastrozole which she did not tolerate well she was then changed to Femara (letrazole) which she did not tolerate. Plan: 1. At this time patient is not taking any antiestrogen she is going to discuss this again with Dr. Reyes and may consider tamoxifen 2. Repeat bilateral mammogram in in June with physician exam at that time 3. At this time patient is not interested in any symmetry procedures of the breast We have discussed that she may be placed on tamoxifen and will make this discussion with Dr. Reyes. She has had a WERO/BSO. Report reviewed from Dr. Reyes and Dr. [place]. Bilateral mammogram in June has been ordered she will follow up after Cc: Dr. Varela
== END ==
LOC: WWCWWP 10:29
PROVIDERS: ATTEND Surgery
DX: C50.912 Malignant neoplasm of unspecified site of left female breast (principal); N60.11 Diffuse cystic mastopathy of right breast; N60.12 Diffuse cystic mastopathy of left breast; M19.90 Unspecified osteoarthritis, unspecified site; I10 Essential (primary) hypertension; N64.89 Other specified disorders of breast; F32.9 Major depressive disorder, single episode, unspecified; F41.9 Anxiety disorder, unspecified; E78.00 Pure hypercholesterolemia, unspecified; Z92.3 Personal history of irradiation; Z87.891 Personal history of nicotine dependence; Z88.8 Allergy status to other drugs, medicaments and biological substances; Z98.890 Other specified postprocedural states

== ENCOUNTER → 2021-06-29 | Outpatient (CLI) | payer MEDICARE ==
--- NOTE | 2021-06-29 12:11 | MM ---
Reason for exam: additional evaluation requested from prior study. Last mammogram was performed 1 year ago. History: Patient is postmenopausal and has history of breast cancer at age 62. Family history of premenopausal breast cancer in maternal aunt at age 35 and breast cancer in maternal cousin at age 40. Malignant MG pre op needle loc LT of the left breast, August 11, 2018. Lumpectomy of the left breast, August 11, 2018. Malignant US biopsy breast VAD LT of the left breast, July 13, 2018. Benign excisional biopsy of the left breast, 1970. Took estrogen for 3 months beginning at age 46. Took progesterone for 3 months beginning at age 46. Taking antineoplastic for 1 year beginning at age 62. Physical Findings: Nurse did not find any significant physical abnormalities on exam. MG 3D Diag Mammo W/Cad SAVI Bilateral CC and MLO view(s) were taken. Prior study comparison: June 27, 2020, bilateral MG 3d diag mammo w/cad SAVI. June 22, 2019, bilateral MG 3d diag mammo w/cad SAVI. The breast tissue is heterogeneously dense. This may lower the sensitivity of mammography. Stable post lumpectomy changes left breast. These results were verbally communicated with the patient and result sheet given to the patient on 06/29/21. ASSESSMENT: Benign, BI-RAD 2 RECOMMENDATION: Follow-up diagnostic mammogram of both breasts in 1 year.
== END | disposition home or self-care (01) ==
LOC: RADMAMWWP 10:26
PROVIDERS: ATTEND Surgery
DX: R92.2 Inconclusive mammogram (principal); Z78.0 Asymptomatic menopausal state; Z85.3 Personal history of malignant neoplasm of breast; Z80.3 Family history of malignant neoplasm of breast
CPT/HCPCS: 77066; G0279; 77062

== ENCOUNTER → 2021-08-30 | Outpatient (CLI) | payer MEDICARE ==
[2021-08-30 13:14] VITALS: BP 161/84; PULSE 74; RESP 18; TEMP 98.7
--- NOTE | 2021-08-30 13:16 | P.PN ---
Subjective Progress Note Date: 08/30/21 Principal diagnosis: Left breast stage IA invasive ductal carcinoma/ no evidence of recurrence stage 1A left breast cancer, [id number]+ Her2-G1 surveillance Dafne is a 65-year-old white female status post lumpectomy radiation therapy and sentinel node biopsy in July 2018 for a stage IA left breast cancer. She had an attempted trial of anastrozole which caused muscle aches, she therefore stopped the anastrazole. She was given another antihormone therapy, letrazloe she also stopped this secondary to muscle aches and depression. She has had a total abdominal hysterectomy. She did not have chemotherapy. She completed radiation therapy. The patient has no complaints at this time. The patient had a bilateral mammogram performed on 06-29-21 this was felt to be benign BIRADS 2. She is recommended a follow-up mammogram of both breasts in 1 year. She is not complaining of any lumps masses or nodules in her breast. No nipple discharge for which she is concerned. Note from DR. Reyes 0f 06-21-21 reviewed. Patient given exemestane. She is having joint pain related to this. She was told depending on how she tolerates this she may be given a trial of tamoxifen. She was recommended to have a bone density prior to next appointment. She will follow up with them in 3 months. Family history: Maternal aunt: Breast cancer Bladder: Prostate cancer patient: breast cancer Hormonal history: Menarche:14 first born at 17, breast fed: Yes Menopause: Hysterectomy and ovaries removed at the age of 46 Control pills: Less than 1 year Hormones: Less than 1 year Surgical history: 1. Hysterectomy and bilateral oophorectomy 2. Cholecystectomy 3. Bilateral carpal tunnel 4. Left great toe 5. Appendix 6. Left breast lumpectomy sentinel node biopsy Past medical history: 1. Hypertension 2. arrhythmia 3. High cholesterol Social history: Smoke: Negative. 21 years ago less than a pack a day for 20 years Alcohol: Wine 1-2 glasses per day Drugs: Negative ALLERGIES: ? statins, and anastrazole Review of systems: HEENT: Wears glasses, dentures Lungs: negative Heart: Arrhythmia, HTN GI: none : UTI in past Musculoskeletal: Arthritis Neurologic: Negative Hematologic: Negative Psychiatric: Anxiety/depression Objective - Constitutional General appearance: Present: cooperative - EENT Eyes: Present: EOMI ENT: Present: hearing grossly normal - Neck Neck: Present: normal ROM - Respiratory Respiratory: bilateral: CTA - Cardiovascular Heart sounds: normal: S1, S2 - Gastrointestinal General gastrointestinal: Present: soft - Integumentary Integumentary: Present: normal turgor - Musculoskeletal Musculoskeletal: Present: gait normal - Psychiatric Psychiatric: Present: A&O x's 3, appropriate affect - Additional findings Additional findings: Breast Exam: BRA: 40B inspection: Left nipple areolar complex higher than right nipple areolar complex left is grade 2 ptosis right is grade 2/3 ptosis outpatient: Right breast: Positional exam fibrocystic changes no dominant masses or nodules of concern Right axilla: No adenopathy of concern Left breast: Multiple positional exam fibrocystic changes no dominant masses or nodules of concern, postop and post radiation changes noted Left axilla: No adenopathy of concern Assessment and Plan Assessment: Impression: 1. Hypertension 2. arrhythmia 3. High cholesterol 4. Stage IA left breast invasive ductal carcinoma no evidence of recurrence 5. Patient not tolerating exemestane staying well has muscle aches is going to follow with Plan: 1. Follow-up with Dr. Aguirre 2. Follow up here in 6 months 3. Bilateral mammogram in 1 year CC: Dr. Varela
== END ==
LOC: WWCWWP 12:30
PROVIDERS: ATTEND Surgery
DX: Z08 Encounter for follow-up examination after completed treatment for malignant neoplasm (principal); I10 Essential (primary) hypertension; E78.00 Pure hypercholesterolemia, unspecified; I49.9 Cardiac arrhythmia, unspecified; Z85.3 Personal history of malignant neoplasm of breast; Z87.891 Personal history of nicotine dependence; Z88.8 Allergy status to other drugs, medicaments and biological substances

== ENCOUNTER → 2021-09-18 | Outpatient (CLI) | payer MEDICARE ==
--- NOTE | 2021-09-18 23:27 | BD ---
EXAMINATION TYPE: Axial Bone Density DATE OF EXAM: 09/18/2021 COMPARISON: NONE CLINICAL HISTORY: Height: 67 Weight: 194.4 FRAX RISK QUESTIONS: Alcohol (3 or more units per day): yes Family History (Parent hip fracture): no Glucocorticoids (More than 3mos): no (Ex: prednisone, prednisolone, methylprednisolone, dexamethasone, and hydrocortisone). History of Fracture in Adulthood: no Secondary Osteoporosis: 1. Type 1 Diabetes: no 2. Hyperthyroidism: no 3. Menopause before 45: yes 4. Malnutrition: no 5. Chronic liver disease: no Rheumatoid Arthritis: no Current Tobacco Use: no RISK FACTORS HISTORY OF: Surgery to Spine/Hip(right/left)/Wrist (right/left): no Family History of Osteoporosis: yes Active: yes Diet low in dairy products/other sources of calcium: no Postmenopausal woman: yes Lost more than 2 inches in height since high school: no MEDICATIONS: hormone derrick, blood pressure meds, cholesterol meds, anti depressant Additional History: EXAM MEASUREMENTS: Bone mineral densitometry was performed using the [employer] System. Bone mineral density as measured about the Lumbar spine is: ----- L1-L4(G/cm2): 1.215 T Score Values are as follows: ----- L2: 0.7 ----- L3: 0.6 ----- L4: 0.5 ----- L1-L4: 0.3 Bone mineral density has: decreased -1.1 % since study of: 06.22.2019 Bone mineral density about the R hip (g/cm2): 0.840 Bone mineral density about the L hip (g/cm2): 0.865 T Score values are as follows: -----R Neck: -1.4 -----L Neck: -1.2 -----R Total: -0.7 -----L Total: -0.6 Bone mineral density has: decreased -1.6 % since study of: 06.22.2019 IMPRESSION: Osteopenia (T Score between -2.5 and -1). There is slightly increased risk of fracture and the patient may be considered for treatment. Re-Screen 2-5 years. NOTE: T-SCORE=SD OF THE YOUNG ADULT MEAN.
== END | disposition home or self-care (01) ==
LOC: RADBDWWP 07:06
PROVIDERS: ATTEND Internal Medicine Hematology & Oncology
DX: M85.89 Other specified disorders of bone density and structure, multiple sites (principal); Z78.0 Asymptomatic menopausal state
CPT/HCPCS: 77080

== ENCOUNTER → 2022-03-29 | Outpatient (CLI) | payer MEDICARE ==
[2022-03-29 09:58] VITALS: BP 155/68; PULSE 69; RESP 18; TEMP 97.8
--- NOTE | 2022-03-29 10:10 | P.PN ---
Subjective Progress Note Date: 03/29/22 Principal diagnosis: left breast stage IA invasive ductal cancer Left breast stage IA invasive ductal carcinoma/ no evidence of recurrence stage 1A left breast cancer, [id number]+ Her2-G1 surveillance Dafne is a 66-year-old white female status post lumpectomy radiation therapy and sentinel node biopsy in July 2018 for a stage IA left breast cancer. She had an attempted trial of anastrozole which caused muscle aches, she therefore stopped the anastrazole. She was given another antihormone therapy, letrazloe she also stopped this secondary to muscle aches and depression. She has had a total abdominal hysterectomy. She did not have chemotherapy. She completed radiation therapy. The patient has no complaints at this time. The patient had a bilateral mammogram performed on 06-29-21 this was felt to be benign BIRADS 2. She is recommended a follow-up mammogram of both breasts in 1 year. She is not complaining of any lumps masses or nodules in her breast. No nipple discharge for which she is concerned. Note from DR. Reyes 0f 06-21-21 reviewed. Patient given exemestane. Note from Dr. Reyes 03-29-22 reviewed: She was initially started on anastrozole which she could not tolerate secondary to bone pains and she stopped that medication late 2018 She was switched to Aromasin under on her visit of 1219 which she took for approximately 5 weeks and then had side effects and stopped this She was changed to Femora in 620 She stopped the Femora around 321 secondary to muscle aches and depression She was switched back to exmestane in 721, she continues on this at the present time but does complain of some intermittent brain fog and joint pains Patient at this time is not complaining of any lumps masses or nodules of concern in either breast. Her last bilateral mammogram was in June 2021 and she will be due for a repeat mammogram in June 2022. Family history: Maternal aunt: Breast cancer Bladder: Prostate cancer patient: breast cancer Hormonal history: Menarche:14 first born at 17, breast fed: Yes Menopause: Hysterectomy and ovaries removed at the age of 46 Control pills: Less than 1 year Hormones: Less than 1 year Surgical history: 1. Hysterectomy and bilateral oophorectomy 2. Cholecystectomy 3. Bilateral carpal tunnel 4. Left great toe 5. Appendix 6. Left breast lumpectomy sentinel node biopsy Past medical history: 1. Hypertension 2. arrhythmia 3. High cholesterol Social history: Smoke: Negative. 21 years ago less than a pack a day for 20 years Alcohol: Wine 1-2 glasses per day Drugs: Negative ALLERGIES: ? statins, and anastrazole Review of systems: HEENT: Wears glasses, dentures Lungs: negative Heart: Arrhythmia, HTN GI: none : UTI in past Musculoskeletal: Arthritis Neurologic: Negative Hematologic: Negative Psychiatric: Anxiety/depression Objective - Exam BMI: 29 - Constitutional General appearance: Present: cooperative - EENT Eyes: Present: EOMI ENT: Present: hearing grossly normal - Neck Neck: Present: normal ROM - Respiratory Respiratory: bilateral: CTA - Cardiovascular Heart sounds: normal: S1, S2 - Integumentary Integumentary: Present: normal turgor - Musculoskeletal Musculoskeletal: Present: gait normal - Psychiatric Psychiatric: Present: A&O x's 3, appropriate affect, intact judgment & insight - Additional findings Additional findings: Breast Exam: BRA: 40C inspection: Post op and radiation changes left breast, bilateral grade 2 ptosis Palpation: Right breast: Multi-positional exam fibrocystic changes no dominant masses or nodules of concern Right axilla: No adenopathy of concern Left breast: Multiple positional exam fibrocystic changes no dominant masses or nodules of concern Left axilla: No adenopathy of concern Assessment and Plan Assessment: Impression: Stage IA left breast invasive ductal carcinoma no evidence of recurrent disease Fibrocystic breast changes Plan: Bilateral mammogram June 2022 Patient is continuing eczema state at this time and following with medical oncology Follow-up. After bilateral mammogram in June CC: DR. Varela
== END | disposition home or self-care (01) ==
LOC: WWCWWP 09:43
PROVIDERS: ATTEND Surgery
DX: Z53.9 Procedure and treatment not carried out, unspecified reason (principal)

== ENCOUNTER → 2022-05-27 | Outpatient (CLI) | payer MEDICARE ==
--- NOTE | 2022-05-27 10:13 | FL ---
INDICATION: Patient age:Female; 66 years old; Reason for study: R10.13 Epigastric pain; history of breast cancer. COMPARISON: None TECHNIQUE: The procedure was explained and patient history elicited. All patient questions were ans wered prior to start of procedure. Blade Balancer radiograph of the abdomen and pelvis is obtained. Multiple f luoroscopic spot images of the esophagus, stomach and duodenum were obtained following ingestion of t hin liquid barium and EZ-gas crystals. Fluoroscopic time: 26 seconds FINDINGS: Blade Balancer radiograph of the abdomen and pelvis was obtained demonstrating nonobstructive bowel gas patter n. No obvious pneumoperitoneum. Cholecystectomy clips in right upper quadrant. No acute osseous abnor mality. Nonspecific calcification in the right upper abdomen which may represent a gallstone. The esophagus appears unremarkable without evidence of focal stricture, ulceration or abnormal outpou edy. Contrast easily passed into the stomach through the esophagus without significant holdup. Ter tiary contractions were demonstrated throughout the lower third of the esophagus. Small hiatal hernia demonstrated in the prone position. No evidence of gastroesophageal reflux was seen with Valsalva m aneuvers. The stomach and duodenum demonstrate a normal course and contour. There is no evidence of focal gastric or duodenal ulceration, stricture, or abnormal outpouching. IMPRESSION: 1. Esophageal dysmotility with tertiary contractions of the lower third esophagus. 2. Small hiatal hernia which reduces in the upright position.
== END | disposition home or self-care (01) ==
LOC: RADFLMAIN 08:34
PROVIDERS: ATTEND Family Medicine
DX: R10.13 Epigastric pain (principal); K44.9 Diaphragmatic hernia without obstruction or gangrene
CPT/HCPCS: 74246

== ENCOUNTER → 2022-06-05 | Outpatient (CLI) | payer MEDICARE ==
--- NOTE | 2022-06-05 18:25 | US ---
EXAMINATION TYPE: US abdomen complete DATE OF EXAM: 06/05/2022 COMPARISON: NONE CLINICAL HISTORY: 66-year-old female R10.13 EPIGASTRIC PAIN. Pt states epigastric fullness, GB remove d many years ago TECHNIQUE: Multiple sonographic images of the abdomen are obtained. FINDINGS: FINDINGS: EXAM MEASUREMENTS: Liver Length: 14.8 cm CBD: 0.4 cm Spleen: 8.6 cm Right Kidney: 10.1 x 4.9 x 4.7 cm Left Kidney: 9.9 x 4.8 x 4.4 cm Pancreas: Only portions of the pancreas body are seen. Remainder is obscured by bowel gas shadowing. Liver: Echogenic and attenuating. Gallbladder: Surgically absent Evidence for sonographic Sanford's sign: No CBD: wnl Spleen: wnl Right Kidney: wnl Left Kidney: wnl Upper IVC: wnl Abd Aorta: wnl IMPRESSION: 1. At least moderate hepatic steatosis. Correlation with LFTs, lipid profile, and patient risk factor s. 2. Status post cholecystectomy. No biliary ductal dilatation.
== END | disposition home or self-care (01) ==
LOC: RADUSWWP 11:33
PROVIDERS: ATTEND Family Medicine
DX: K76.0 Fatty (change of) liver, not elsewhere classified (principal); Z90.49 Acquired absence of other specified parts of digestive tract
CPT/HCPCS: 76700

== ENCOUNTER → 2022-07-02 | Outpatient (CLI) | payer MEDICARE ==
--- NOTE | 2022-07-02 08:41 | MM ---
Reason for Exam: Additional evaluation requested from prior study. Last screening mammogram was performed 12 month(s) ago. Patient History: Menarche at age 12. First Full-Term at age 18. Left ovary removed at age 46. Right ovary removed at age 46. Hysterectomy at age 46. Postmenopausal. Breast cancer, left, age 62. Estrogen for 3 months starting at age 46. Progesterone for 3 months starting at age 46. 08/11/2018, Lumpectomy on the Left side. 1970, Benign Excisional Biopsy on the left side. 08/11/2018, Malignant Core Biopsy on the left side. 07/13/2018, Malignant Core Biopsy on the left side. Maternal cousin had breast cancer, age 40. Maternal aunt had breast cancer, age 35. Prior Study Comparison: 03/31/1995 Screening Mammogram, Unknown. 03/26/1996 Screening Mammogram, Unknown. 08/31/1997 Bilateral Special View Mammogram, [facility]. 09/12/1998 Bilateral Screening Mammogram, [facility]. 10/18/1999 Bilateral Special View Mammogram, [facility]. 10/24/2000 Bilateral Screening Mammogram, [facility]. 10/26/2001 Bilateral Screening Mammogram, [facility]. 11/04/2001 Left Diagnostic Ultrasound, [facility]. 05/24/2002 Left Diagnostic Mammogram, [facility]. 11/18/2002 Bilateral Diagnostic Mammogram, [facility]. 01/20/2004 Bilateral Screening Mammogram, [facility]. 01/24/2005 Bilateral Screening Mammogram, [facility]. 06/18/2006 Bilateral Screening Mammogram, [facility]. 06/27/2006 Left Diagnostic Mammogram, [facility]. 02/09/2007 Left Diagnostic Mammogram, [facility]. 07/07/2007 Bilateral Diagnostic Mammogram, [facility]. 06/28/2008 Bilateral Screening Mammogram, [facility]. 09/06/2009 Bilateral Screening Mammogram, [facility]. 09/18/2010 Bilateral Screening Mammogram, [facility]. 03/17/2012 Bilateral Screening Mammogram, [facility]. 06/15/2013 Bilateral Screening Mammogram, [facility]. 05/01/2016 Bilateral Screening Mammogram, [facility]. 05/21/2017 Bilateral Screening Mammogram, [facility]. 06/18/2018 Bilateral Screening Mammogram, [facility]. 06/24/2018 Left Diagnostic Mammogram, [facility]. 06/24/2018 Left Diagnostic Ultrasound, [facility]. 07/13/2018 Left Diagnostic Mammogram, [facility]. 06/22/2019 Bilateral Diagnostic Mammogram, [facility]. 06/27/2020 Bilateral Diagnostic Mammogram, [facility]. 06/29/2021 Bilateral Diagnostic Mammogram, [facility]. Tissue Density: There are scattered fibroglandular densities. Findings: Analyzed By CAD. Postoperative changes left breast from prior lumpectomy. Benign calcifications redemonstrated. No evidence for new mass or area of distortion. Overall Assessment: Benign, BI-RAD 2 Management: Diagnostic Mammogram of both breasts in 1 year. A clinical breast exam by your physician is recommended on an annual basis and results should be correlated with mammographic findings. This exam should not preclude additional follow-up of suspicious palpable abnormalities. Results were given to the patient verbally at the time of exam. Electronically signed and approved by: James Collins M.D. Radiologis
== END | disposition home or self-care (01) ==
LOC: RADMAMWWP 08:11
PROVIDERS: ATTEND Surgery
DX: R92.8 Other abnormal and inconclusive findings on diagnostic imaging of breast (principal); Z80.3 Family history of malignant neoplasm of breast
CPT/HCPCS: 77066; G0279; 77062

== ENCOUNTER → 2022-07-05 | Outpatient (CLI) | payer MEDICARE ==
[2022-07-05 08:40] VITALS: BP 146/81; PULSE 73; RESP 16; TEMP 97.8
--- NOTE | 2022-07-05 09:18 | P.PN ---
Subjective Progress Note Date: 07/05/22 Principal diagnosis: stage IA left breast invasive ductal cancer 2017 stage 1A left breast cancer, [id number]+/AK+ Her2-G1 surveillance Dafne is a 66-year-old white female status post lumpectomy radiation therapy and sentinel node biopsy in July 2018 for a stage IA left breast cancer. She had an attempted trial of anastrozole which caused muscle aches, she therefore stopped the anastrazole. She was given another antihormone therapy, letrazloe she also stopped this secondary to muscle aches and depression. She has had a total abdominal hysterectomy. She did not have chemotherapy. She completed radiation therapy. The patient has no complaints at this time. The patient had a bilateral mammogram performed on 07-02-22 this was felt to be benign BIRADS 2. She is recommended a follow-up mammogram of both breasts in 1 year. She is not complaining of any lumps masses or nodules in her breast. No nipple discharge for which she is concerned. Note from DR. Reyes 0f 06-21-21 reviewed. Patient given exemestane. Note from Dr. Reyes 03-29-22 reviewed: She was initially started on anastrozole which she could not tolerate secondary to bone pains and she stopped that medication late 2018 She was switched to Aromasin after her visit of 1219 which she took for approximately 5 weeks and then had side effects and stopped this She was changed to Femora in 620 She stopped the Femora around 321 secondary to muscle aches and depression She was switched back to exmestane in 721, she stopped this about 3 weeks ago related to joint pain, depression, and brain fog. She will follow up with Dr. Reyes in September. Family history: Maternal aunt: Breast cancer Bladder: Prostate cancer patient: breast cancer Hormonal history: Menarche:14 first born at 17, breast fed: Yes Menopause: Hysterectomy and ovaries removed at the age of 46 Control pills: Less than 1 year Hormones: Less than 1 year Surgical history: 1. Hysterectomy and bilateral oophorectomy 2. Cholecystectomy 3. Bilateral carpal tunnel 4. Left great toe 5. Appendix 6. Left breast lumpectomy sentinel node biopsy Past medical history: 1. Hypertension 2. arrhythmia 3. High cholesterol Social history: Smoke: Negative. 21 years ago less than a pack a day for 20 years Alcohol: Wine 1-2 glasses per day Drugs: Negative ALLERGIES: ? statins, and anastrazole Review of systems: HEENT: Wears glasses, dentures Lungs: negative Heart: Arrhythmia, HTN GI: none : UTI in past Musculoskeletal: Arthritis Neurologic: Negative Hematologic: Negative Psychiatric: Anxiety/depression Objective - Vital Signs Vital signs: Vital Signs Temp 97.8 F 07/05/22 08:36 Pulse 73 07/05/22 08:36 Resp 16 07/05/22 08:36 BP 146/81 07/05/22 08:36 Pulse Ox 99 07/05/22 08:36 FiO2 Intake & Output 07/04/22 07/05/22 07/05/22 18:59 06:59 18:59 Weight 84.368 kg - Exam BMI: 29.1 - Constitutional General appearance: Present: cooperative - EENT Eyes: Present: EOMI ENT: Present: hearing grossly normal - Neck Neck: Present: normal ROM - Respiratory Respiratory: bilateral: CTA - Cardiovascular Rhythm: regular Heart sounds: normal: S1, S2 - Integumentary Integumentary: Present: normal turgor - Musculoskeletal Musculoskeletal: Present: gait normal - Psychiatric Psychiatric: Present: A&O x's 3, appropriate affect, intact judgment & insight - Additional findings Additional findings: Breast Exam: BRA: XL sports bra inspection: Asymmetry of the breast related to treatment for stage I a left breast cancer, bilateral grade 2 ptosis Palpation: Right breast: Multiple positional exam fibrocystic changes no dominant masses or nodules of concern Right axilla: No adenopathy of concern Left breast: Postoperative and postradiation changes, no dominant masses or nodules of concern, multiple positional exam Left axilla: No adenopathy of concern Assessment and Plan Assessment: Impression: Stage I a left breast invasive ductal carcinoma 2018 no evidence of recurrent cancer, patient has had a course of radiation therapy, she has tried aromatase inhibitors however has had side effects from these and is currently not using them Plan: Bilateral mammogram in 1 year with physician exam at that time Follow-up with radiation oncology Follow-up medical oncology/discuss aromatase inhibitor use Follow appears 6 months for breast examination Cc: Dr. Varela
== END ==
LOC: WWCWWP 08:26
PROVIDERS: ATTEND Surgery
DX: Z08 Encounter for follow-up examination after completed treatment for malignant neoplasm (principal); Z85.3 Personal history of malignant neoplasm of breast; I10 Essential (primary) hypertension; E78.00 Pure hypercholesterolemia, unspecified; Z87.891 Personal history of nicotine dependence; Z88.8 Allergy status to other drugs, medicaments and biological substances

== ENCOUNTER → 2023-07-04 | Outpatient (CLI) | payer MEDICARE ==
--- NOTE | 2023-07-04 13:08 | P.PN ---
Subjective Progress Note Date: 07/04/23 Principal diagnosis: stage IA left breast invasive ductal cancer 2017 stage 1A left breast cancer, [id number]+/HI+ Her2-G1 surveillance Dafne is a 67-year-old white female status post lumpectomy radiation therapy and sentinel node biopsy in July 2018 for a stage IA left breast cancer. She had an attempted trial of anastrozole which caused muscle aches, she therefore stopped the anastrazole. She did not have chemotherapy. She was given another antihormone therapy, letrazloe she also stopped this secondary to muscle aches and depression. She was initially started on anastrozole which she could not tolerate secondary to bone pains and she stopped that medication late 2018 She was switched to Aromasin after her visit of 1219 which she took for approximately 5 weeks and then had side effects and stopped this She was changed to Femora in 620 She stopped the Femora around 321 secondary to muscle aches and depression She was switched back to exmestane in 721, she stopped this about 3 weeks ago related to joint pain, depression, and brain fog. At the present time she is not taking any hormone therapy. She is not complaining of any new lumps, masses or ndules of concern in either breast. bilateral mammogram 07-04-23 BIRAD 2 note radiation oncology 04-03-22 will return to them as needed Family history: Maternal aunt: Breast cancer Bladder: Prostate cancer patient: breast cancer Hormonal history: Menarche:14 first born at 17, breast fed: Yes Menopause: Hysterectomy and ovaries removed at the age of 46 Control pills: Less than 1 year Hormones: Less than 1 year Surgical history: 1. Hysterectomy and bilateral oophorectomy 2. Cholecystectomy 3. Bilateral carpal tunnel 4. Left great toe 5. Appendix 6. Left breast lumpectomy sentinel node biopsy Past medical history: 1. Hypertension 2. arrhythmia 3. High cholesterol Social history: Smoke: Negative. 21 years ago less than a pack a day for 20 years Alcohol: Wine 1-2 glasses per day Drugs: Negative ALLERGIES: ? statins, and anastrazole Review of systems: HEENT: Wears glasses, dentures Lungs: negative Heart: Arrhythmia, HTN GI: none : UTI in past Musculoskeletal: Arthritis Neurologic: Negative Hematologic: Negative Psychiatric: Anxiety/depression Objective - Constitutional General appearance: Present: cooperative - EENT Eyes: Present: EOMI ENT: Present: hearing grossly normal - Neck Neck: Present: normal ROM - Respiratory Respiratory: bilateral: CTA - Cardiovascular Rhythm: regular Heart sounds: normal: S1, S2 - Integumentary Integumentary: Present: normal turgor - Musculoskeletal Musculoskeletal: Present: gait normal - Psychiatric Psychiatric: Present: A&O x's 3, appropriate affect, intact judgment & insight - Additional findings Additional findings: Breast Exam: BRA: XL sports bra inspection: Asymmetry of the breast related to treatment for stage I a left breast cancer, bilateral grade 2 ptosis Palpation: Right breast: Multi-positional exam fibrocystic changes no dominant masses or nodules of concern Right axilla: No adenopathy of concern Left breast: Postoperative and postradiation changes, no dominant masses or nodules of concern, multiple positional exam Left axilla: No adenopathy of concern Assessment and Plan Assessment: Impression: Stage IA left breast invasive ductal carcinoma 2018 no evidence of recurrent cancer, patient has had a course of radiation therapy, she has tried aromatase inhibitors however has had side effects from these and is currently not using them bilateral mammogram 07-04-23 BIRAD 2 Plan: Bilateral mammogram in 1 year with physician exam at that time Follow-up with radiation oncology prn Follow-up medical oncology Cc: Dr. Varela
[2023-07-04 15:31] VITALS: BP 135/70; PULSE 87; RESP 17; TEMP 97.8
== END ==
LOC: WWCWWP 12:34
PROVIDERS: ATTEND Surgery
DX: I10 Essential (primary) hypertension (principal); E78.00 Pure hypercholesterolemia, unspecified; M89.8X9 Other specified disorders of bone, unspecified site; Z80.3 Family history of malignant neoplasm of breast; Z88.8 Allergy status to other drugs, medicaments and biological substances; Z85.3 Personal history of malignant neoplasm of breast; Z87.891 Personal history of nicotine dependence

== ENCOUNTER → 2023-07-04 | Outpatient (CLI) | payer MEDICARE ==
--- NOTE | 2023-07-04 12:57 | MM ---
Reason for Exam: Follow-up at short interval from prior study. Last screening mammogram was performed 12 month(s) ago. Patient History: Menarche at age 12. First Full-Term at age 18. Left ovary removed at age 46. Right ovary removed at age 46. Hysterectomy at age 46. Postmenopausal. Breast cancer, left, age 62. Estrogen for 3 months starting at age 46. Progesterone for 3 months starting at age 46. 08/11/2018, Lumpectomy on the Left side. 1970, Benign Excisional Biopsy on the left side. 08/11/2018, Malignant Core Biopsy on the left side. 07/13/2018, Malignant Core Biopsy on the left side. Maternal cousin had breast cancer, age 40. Maternal aunt had breast cancer, age 35. Tissue Density: The breast tissue is heterogeneously dense. This may lower the sensitivity of mammography. Findings: Analyzed By CAD. Postoperative lumpectomy changes are stable left breast. No recurrent or residual mass. No suspicious calcifications within either breast. Overall Assessment: Benign, BI-RAD 2 Management: Diagnostic Mammogram of both breasts in 1 year. . Results were given to the patient verbally at the time of exam. Patient should continue monthly self-breast exams. A clinical breast exam by your physician is recommended on an annual basis. This exam should not preclude additional follow-up of suspicious palpable abnormalities. Note on Sandhya scores and lifetime risk: 1. A Sandhya score greater than 3% is considered moderate risk. If this is the case, consider specialist referral to assess eligibility for a risk reducing agent. 2. If overall lifetime risk for the development of breast cancer is 20% or higher, the patient may qualify for future screening with alternating mammogram and breast MRI. Electronically signed and approved by: James Collins M.D. Radiologis
== END | disposition home or self-care (01) ==
LOC: RADMAMWWP 12:33
PROVIDERS: ATTEND Surgery
DX: R92.8 Other abnormal and inconclusive findings on diagnostic imaging of breast (principal); Z85.3 Personal history of malignant neoplasm of breast; Z80.3 Family history of malignant neoplasm of breast; Z78.0 Asymptomatic menopausal state
CPT/HCPCS: 77066; G0279; 77062

== ENCOUNTER 2024-04-02 05:37 | Day surgery (SDC) | payer MEDICARE ==
[2024-04-02] MEDS ORDERED: HYDROmorphone 0.5 MG/0.5 ML SYRINGE IVP PRN (05:46)
[2024-04-02] MEDS ORDERED: LIDOCAINE 1% (10MG/ML) FOR IV START INTRADERMA PRN (05:46)
[2024-04-02] MEDS ORDERED: fentaNYL (PF) 50 MCG/ML 2 ML AMP IVP PRN (05:46)
[2024-04-02] MEDS: IV FLUID CONTINUATION 1,000 ML IV ONE ×2 (06:42→07:30)
[2024-04-02] MEDS: LACTATED RINGERS 1,000 ML IV SCH (06:43)
[2024-04-02] MEDS: DEXAMETHASONE SOD PHOSPHATE 4 MG/ML 1 ML VIAL IV ONE (06:44)
[2024-04-02] MEDS: ONDANSETRON 4 MG/2 ML VIAL IVP ONE (06:44)
[2024-04-02] MEDS: MIDAZOLAM 2 MG/2 ML VIAL IV PRN (06:56)
[2024-04-02] MEDS ORDERED: MIDAZOLAM 2 MG/2 ML VIAL ONE (07:25)
[2024-04-02] MEDS ORDERED: ROPIVACAINE 5 MG/ML 30 ML VIAL ONE (07:25)
[2024-04-02] MEDS ORDERED: LIDOCAINE 1% INJ 10MG/ML (20 ML MDV) ONE (07:25)
[2024-04-02] MEDS ORDERED: WATER FOR INJECTION, STERILE 10 ML VIAL IV ONE (07:25)
[2024-04-02] MEDS ORDERED: DEXAMETHASONE SOD PHOSPHATE 4 MG/ML 1 ML VIAL ONE (07:25)
[2024-04-02] MEDS ORDERED: fentaNYL (PF) 50 MCG/ML 2 ML AMP ONE (07:25)
[2024-04-02] MEDS ORDERED: PROPOFOL 10 MG/ML 20 ML VIAL IV ONE (07:25)
[2024-04-02] MEDS ORDERED: ePHEDrine 50 MG/ML 1 ML VIAL ONE (07:25)
[2024-04-02 07:33] VITALS: TEMP 97.3
--- NOTE | 2024-04-02 07:36 | P.ANPRN ---
Procedure Note - Anesthesia - Nerve Block Performed Right Popliteal Single Time Out Performed: Yes Date of Procedure: 04/02/24 Procedure Start Time: 06:55 Procedure Stop Time: 07:00 Location of Patient: PreOp Indication: Acute Post-Operative Pain, Analgesia, Requested by Surgeon Sedation Type: Sedate with meaningful contact maintained Preparation: Sterile Prep Position: Left Lateral Catheter: None Needle Types: Pajunk Needle Gauge: 21 Ultrasound used to visualize needle placement: Yes Ultrasound used to observe medication spread: Yes Injectate: 0.5% Ropivacaine (see comment for volume) (Ropiv 20ml +decadron 4mg) Blood Aspirated: No
--- NOTE | 2024-04-02 07:53 | P.ANPRN ---
Procedure Note - Anesthesia - Nerve Block Performed Right Adductor Canal Single Time Out Performed: Yes Date of Procedure: 04/02/24 Procedure Start Time: 07:00 Procedure Stop Time: 07:15 Location of Patient: PreOp Indication: Acute Post-Operative Pain, Analgesia, Requested by Surgeon Sedation Type: Sedate with meaningful contact maintained Preparation: Sterile Prep Position: Supine Catheter: None Needle Types: Pajunk Needle Gauge: 21 Ultrasound used to visualize needle placement: Yes Ultrasound used to observe medication spread: Yes Injectate: 0.5% Ropivacaine (see comment for volume) (Ropiv 15ml+decadron 4mg, attemptX1) Blood Aspirated: No Pain Paresthesia on Injection Noted: No Resistance on Injection: Normal Image Stored and Saved: Yes Events: Uneventful and Well Tolerated
--- NOTE | 2024-04-02 08:59 | P.OP ---
Date of Procedure: 04/02/24 Preoperative Diagnosis: hallux rigidus right foot Postoperative Diagnosis: same Procedure(s) Performed: first metatarsal phalangeal joint arthrodesis right foot Implants: Arthrex MaxForce plate and screws Arthrex allograft Anesthesia: TAWANNA Surgeon: Lucas Ruth Estimated Blood Loss (ml): 1 Pathology: none sent Condition: stable Disposition: PACU Description of Procedure: Prior to the patient being brought to the operating room, anesthesia administer ed a nerve block on the right lower extremity. The patient was brought into the operating room and placed on table in supine position. Timeout was taken to confirm correct patient identifiers, correct ELIZABETH surgery, and correct procedure. Once all staff in the room were in agreement timeout, the patient was induced and placed under general anesthesia. A well-padded tourniquet was placed on the right ankle. Then the right foot was prepped and draped in the usual manner. The right leg was exsanguinated and the tourniquet inflated to 250 mmHg. Attention was directed over the dorsomedial aspect of the first metatarsal phalangeal joint. A linear incision was made between the neurovascular structures and the long extensor tendon. The incision was deepened down to the subcutaneous tissue careful to identify, avoid, and retract any neurovascular structures and cauterize any bleeding vessels. Dissection was continued down through the subcutaneous layer down to the joint capsule. A capsulotomy was performed just medial to the extensor tendon. The capsule and periosteal tissues were reflected from their osseous attachments on the first metatarsal head as well as the base of the proximal phalanx. The joint was distracted and plantarflexed. There was approximately 75-80% complete erosion of the articular cartilage on the first metatarsal head. There were dorsal osteophytes on the first metatarsal head and base of the proximal phalanx. A guidewire was placed in the central aspect of the first metatarsal head into medullary canal, parallel to the long axis. The first reamer was used to shape the first metatarsal head. The next was the concave reamer to remove the articular cartilage and subchondral bone. The guidewire was removed and then a 2.0 mm drill bit was used to aggressively fenestrate the first metatarsal head. The guidewire was then reinserted at the aspect of the base of the middle phalanx, parallel to the long access, and advanced into the medullary canal. the convex reamer was then used to remove the articular cartilage and subchondral bone on the base of the proximal phalanx. The guidewire was removed and the joint surface aggressively fenestrated with a 2.0 mm drill bit. The wound is then thoroughly irrigated with antibiotic saline. The allograft was mixed on the back table and then placed between the arthrodesis segments. The Arthrex MaxF orce plate was positioned dorsally over the arthrodesis site. Fluoroscopy was used to adjust the position and alignment of the plate. Once the alignment was appropriate, temporary fixation was inserted through the plate into the bone. A separate wire was then placed across the joint to maintain the position. Fluoroscopic imaging showed proper placement of the plate as well as proper positioning of the great toe. The first 3 screws were locking screws placed in the distal aspect of the plate into the proximal phalanx. The drill guide for the MaxForce compression was then placed in the proximal aspect of the plate. The drill hole was made and then the geared lever was inserted in the hole, engaged the plate, and was then rotated to fully compressed the arthrodesis site. The plate was temporarily fixated again in its new position. A nonlocking screw was placed in the compression slot and advanced until it engaged the plate and provided further compression across the arthrodesis site. The next 2 screws were through the proximal aspect of the plate, and both were locking screws. The temporary fixation was removed as was the wire across the joint. Final fluoroscopic imaging showed good bony contact at the arthrodesis site, maintaining alignment of the great toe, and proper placement of the hardware. The wound is thoroughly irrigated with antibiotic saline. The capsule and periosteal tissues were closed with 0 Vicryl. Subcutaneous closure was closed with 4-0 Monocryl. And skin closure was done with4-0 Stratafix in a running subcuticular manner. Dermal glue was applied over the incision. Steri- Strips are placed over the incision. An Arthrex jumpstart dressing was placed over the incision and then a dry sterile bandage applied to the foot. The tourniquet was released and capillary refill return to all digits on the right foot. The patient was placed in a well-padded, well molded plaster posterior mold/sugar tong splint. Ankle and foot were held in neutral position until the splint was dried. Anesthesia was reversed and the patient was taken recovery with vital signs stable
[2024-04-02 09:42] VITALS: BP 142/86; PULSE 79; RESP 16
== END 2024-04-02 09:54 | disposition home or self-care (01) ==
LOC: OR 05:37
PROVIDERS: ATTEND Podiatrist
DX: M20.21 Hallux rigidus, right foot (principal); G89.18 Other acute postprocedural pain; I10 Essential (primary) hypertension; E78.5 Hyperlipidemia, unspecified; M19.90 Unspecified osteoarthritis, unspecified site; F41.9 Anxiety disorder, unspecified; K21.9 Gastro-esophageal reflux disease without esophagitis; F10.90 Alcohol use, unspecified, uncomplicated; Z88.8 Allergy status to other drugs, medicaments and biological substances; Z90.49 Acquired absence of other specified parts of digestive tract; Z79.899 Other long term (current) drug therapy
CPT/HCPCS: 64447; 64445; 28750; C1713; C1734; J2250; J1100; J0690; J2405; J2001; J3010; J2795; J2704

== ENCOUNTER → 2024-07-06 | Outpatient (CLI) | payer MEDICARE ==
--- NOTE | 2024-07-06 11:06 | MM ---
Reason for Exam: Hx of breast cancer, conservation therapy. Last screening mammogram was performed 12 month(s) ago. Patient History: Menarche at age 12. First Full-Term at age 18. Left ovary removed at age 46. Right ovary removed at age 46. Hysterectomy at age 46. Postmenopausal. Breast cancer, left, age 62. Estrogen for 3 months starting at age 46. Progesterone for 3 months starting at age 46. 08/11/2018, Lumpectomy on the Left side. 1969, Benign Excisional Biopsy on the left side. 08/11/2018, Malignant Core Biopsy on the left side. 07/13/2018, Malignant Core Biopsy on the left side. 2017, Radiation Therapy on the left side. Maternal cousin had breast cancer, age 40. Maternal aunt had breast cancer, age 35. Tissue Density: There are scattered areas of fibroglandular density. Findings: Analyzed By CAD. Pattern is stable. Postsurgical changes are within the posterior left breast. Right breast is larger than the left. Biosorb appears to be present in the lumpectomy site. No suspicious groups of microcalcifications, spiculated or lobular masses, architectural distortion or other secondary signs of malignancy are mammographically apparent. Overall Assessment: Benign, BI-RAD 2 Management: Screening Mammogram of both breasts in 1 year. A negative mammogram report should not preclude additional follow up of suspicious palpable abnormalities. Patient should continue monthly self breast exam. A clinical breast exam by your physician is recommended on an annual basis and results should be correlated with mammographic findings. Note on Sandhya scores and lifetime risk: 1. A Sandhya score greater than 3% is considered moderate risk. If this is the case, consider specialist referral to assess eligibility for a risk reducing agent. 2. If overall lifetime risk for the development of breast cancer is 20% or higher, the patient may qualify for future screening with alternating mammogram and breast MRI. [facility], , 07/06/2024 11:03 AM. Electronically signed and approved by: Lenny Yoon D.O. Radiologis
== END | disposition home or self-care (01) ==
LOC: RADMAMWWP 10:40
PROVIDERS: ATTEND Surgery
DX: Z85.3 Personal history of malignant neoplasm of breast
CPT/HCPCS: 77062; 77066

== ENCOUNTER → 2024-07-08 | Outpatient (CLI) | payer MEDICARE ==
[2024-07-08 11:39] VITALS: BP 138/80; PULSE 90; RESP 16; TEMP 98.2
--- NOTE | 2024-07-08 11:56 | P.PN ---
Subjective Progress Note Date: 07/08/24 Principal diagnosis: stage 1A left breast cancer, H5RsAcIA+/MS+ Her2-G1 surveillance Principal diagnosis: stage IA left breast invasive ductal cancer 2017 stage 1A left breast cancer, [id number]+/MS+ Her2-G1 surveillance Dafne is a 68-year-old white female status post lumpectomy radiation therapy and sentinel node biopsy in July 2018 for a stage IA left breast cancer. She completed 18 treatments of radiation therapy in 2017. She had an attempted trial of anastrozole which caused muscle aches, she therefore stopped the anastrazole. She did not have chemotherapy. She was given another antihormone therapy, letrazloe she also stopped this secondary to muscle aches and depression. She was initially started on anastrozole which she could not tolerate secondary to bone pains and she stopped that medication late 2018 She was switched to Aromasin after her visit of 1219 which she took for approximately 5 weeks and then had side effects and stopped this She was changed to Femora in 620 She stopped the Femora around 321 secondary to muscle aches and depression She was switched back to exmestane in 721, she stopped this about 3 weeks ago related to joint pain, depression, and brain fog. At the present time she is not taking any hormone therapy. She is not complaining of any new lumps, masses or nodules of concern in either breast. bilateral mammogram 07-06-24 BIRAD 2 note medical oncology 01-28-24 reviewed Family history: Maternal aunt: Breast cancer Bladder: Prostate cancer patient: breast cancer Hormonal history: Menarche:14 first born at 17, breast fed: Yes Menopause: Hysterectomy and ovaries removed at the age of 46 Control pills: Less than 1 year Hormones: Less than 1 year Surgical history: 1. Hysterectomy and bilateral oophorectomy 2. Cholecystectomy 3. Bilateral carpal tunnel 4. Left great toe 5. Appendix 6. Left breast lumpectomy sentinel node biopsy 7. right great toe fused Past medical history: 1. Hypertension 2. arrhythmia 3. High cholesterol Social history: Smoke: Negative. 21 years ago less than a pack a day for 20 years Alcohol: Wine 1-2 glasses per day Drugs: Negative ALLERGIES: ? statins, and anastrazole Review of systems: HEENT: Wears glasses, dentures Lungs: negative Heart: Arrhythmia, HTN GI: none : UTI in past Musculoskeletal: Arthritis Neurologic: Negative Hematologic: Negative Psychiatric: Anxiety/depression Objective - Vital Signs Vital signs: Vital Signs Temp 98.2 F 07/08/24 11:35 Pulse 90 07/08/24 11:35 Resp 16 07/08/24 11:35 BP 138/80 07/08/24 11:35 Pulse Ox 97 07/08/24 11:35 FiO2 Intake & Output 07/07/24 07/08/24 07/08/24 18:59 06:59 18:59 Weight 81.647 kg - Constitutional General appearance: Present: cooperative - EENT Eyes: Present: EOMI ENT: Present: hearing grossly normal - Neck Neck: Present: normal ROM - Respiratory Respiratory: bilateral: CTA - Cardiovascular Rhythm: regular Heart sounds: normal: S1, S2 - Integumentary Integumentary: Present: normal turgor - Musculoskeletal Musculoskeletal: Present: gait normal - Psychiatric Psychiatric: Present: A&O x's 3, appropriate affect, intact judgment & insight - Additional findings Additional findings: Breast Exam: BRA: XL sports bra inspection: Asymmetry of the breast related to treatment for stage I a left breast cancer, right breast grade 3 ptosis, left breast grade 2 ptosis Palpation: Right breast: Multi-positional exam fibrocystic changes no dominant masses or nodules of concern Right axilla: No adenopathy of concern Left breast: Postoperative and postradiation changes, no dominant masses or nodules of concern, multiple positional exam Left axilla: No adenopathy of concern Assessment and Plan Assessment: Impression: Stage IA left breast invasive ductal carcinoma 2018 no evidence of recurrent cancer, patient has had a course of radiation therapy, she has tried aromatase inhibitors however has had side effects from these and is currently not using them bilateral mammogram 07-06-24 BIRAD 2 Plan: Bilateral mammogram in 1 year with physician exam at that time Follow-up with radiation oncology prn Follow-up medical oncology Cc: Dr. Varela
== END ==
LOC: WWCWWP 11:16
PROVIDERS: ATTEND Surgery
DX: R92.8 Other abnormal and inconclusive findings on diagnostic imaging of breast (principal); F32.A Depression, unspecified; M89.8X9 Other specified disorders of bone, unspecified site; Z85.3 Personal history of malignant neoplasm of breast; Z80.3 Family history of malignant neoplasm of breast; Z92.3 Personal history of irradiation; Z88.8 Allergy status to other drugs, medicaments and biological substances; Z87.891 Personal history of nicotine dependence